=== PATIENT | female | born 1980 | race Caucasian/White ===

== ENCOUNTER 2018-09-05 03:23 | Inpatient (IN) | payer SELFPAY ==
--- NOTE | 2018-09-05 03:45 | ED ---
HPI Diabetic - HPI Summary HPI Summary: This patient is a 38 year old F presenting to [facility] accompanied by family with a chief complaint of vomiting that began at 0230. The patient rates the pain 6/ 10 in severity. Symptoms aggravated by nothing. Symptoms alleviated by nothing. Patient reports upper body pain. Patient denies fever and diarrhea. Patient states she gets vomiting episodes when shes in DKA. - History Of Current Complaint Chief Complaint: EDDiabeticProb Time Seen by Provider: 09/05/18 03:34 Hx Obtained From: Patient Onset/Duration: Sudden Onset, Lasting Hours, Still Present Timing: Constant Severity Initially: Moderate Severity Currently: Moderate Character: Alert Aggravating: Nothing Alleviating: Nothing - Allergies/Home Medications Allergies/Adverse Reactions: Allergies Allergy/AdvReac Type Severity Reaction Status Date / Time No Known Allergies Allergy Verified 09/05/18 03:28 PMH/Surg Hx/FS Hx/Imm Hx Previously Healthy: No Endocrine/Hematology History: Reports: Hx Diabetes Opthamlomology History: Denies: Hx Legally Blind EENT History: Denies: Hx Deafness Infectious Disease History: No Infectious Disease History: Denies: Traveled Outside the [place] in Last 30 Days - Family History Known Family History: Negative: Cardiac Disease, Diabetes - Social History Occupation: Unemployed Lives: With Family Alcohol Use: Daily Alcohol Amount: 1/2 liter of vodka daily Hx Substance Use: No Substance Use Type: Reports: None Hx Tobacco Use: Yes Smoking Status (MU): Heavy Every Day Tobacco Smoker Review of Systems Negative: Fever Positive: Vomiting. Negative: Diarrhea Positive: Other - Positive upper body pain All Other Systems Reviewed And Are Negative: Yes Physical Exam - Summary Physical Exam Summary: VITAL SIGNS: Reviewed. GENERAL: Patient is a well-developed and nourished female who is lying comfortable in the stretcher. Patient is not in any acute respiratory distress. HEAD AND FACE: No signs of trauma. No ecchymosis, hematomas or skull depressions. No sinus tenderness. EYES: PERRLA, EOMI x 2, No injected conjunctiva, no nystagmus. EARS: Hearing grossly intact. Ear canals and tympanic membranes are within normal limits. MOUTH: Oropharynx within normal limits. NECK: Supple, trachea is midline, no adenopathy, no JVD, no carotid bruit, no c- spine tenderness, neck with full ROM. CHEST: Symmetric, no tenderness at palpation LUNGS: Clear to auscultation bilaterally. No wheezing or crackles. CVS: Regular rhythm and tachycardic, S1 and S2 present, no murmurs or gallops appreciated. ABDOMEN: Soft, non-tender. No signs of distention. No rebound no guarding, and no masses palpated. Bowel sounds are normal. EXTREMITIES: FROM in all major joints, no edema, no cyanosis or clubbing. NEURO: Alert and oriented x 3. No acute neurological deficits. Speech is normal and follows commands. SKIN: Dry and warm Triage Information Reviewed: Yes Vital Signs On Initial Exam: Initial Vitals Temp Pulse Resp BP Pulse Ox 98.2 F 111 18 129/67 100 09/05/18 03:25 09/05/18 03:25 09/05/18 03:25 09/05/18 03:25 09/05/18 03:25 Vital Signs Reviewed: Yes Diagnostics - Vital Signs Vital Signs Temp Pulse Resp BP Pulse Ox 09/05/18 03:25 98.2 F 111 18 129/67 100 - Laboratory Result Diagrams: 09/05/18 04:32 09/05/18 04:32 Lab Statement: Any lab studies that have been ordered have been reviewed, and results considered in the medical decision making process. - Radiology CXR Radiology Interpretation Completed By: ED Physician Summary of Radiographic Findings: CXR reveals, per ED physician, no acute process. - EKG 0417 Cardiac Rate: Tachycardia EKG Rhythm: Sinus Rhythm - 114 BPM Summary of EKG Findings: An EKG taken at 0417 reveals sinus tachycardia at 114 BPM with nml axis, nml intervals, and no ischemic changes. Diabetic Course/Dx - Course Course Of Treatment: This patient is a 38 year old F presenting to [facility] accompanied by family with a chief complaint of vomiting that began at 0230. Physical Exam Findings: Tachycardic. An EKG taken at 0417 reveals sinus tachycardia at 114 BPM with nml axis, nml intervals, and no ischemic changes. CXR reveals, per ED physician, no acute process. ED physician has reviewed this radiology report. Bloodwork obtained. In the ED course the patient was given insulin, fluids, metoclopramide, and pantoprazole. Consult with Dr. Wolff ( hospitalist) at 0522. He agrees to admit the pt for further evaluation. The patient is agreeable with this plan. - Diagnoses Provider Diagnoses: DKA (diabetic ketoacidoses) - Physician Notifications Discussed Care Of Patient With: Abel Wolff Time Discussed With Above Provider: 05:22 Instructed by Provider To: Other - Consult with Dr. Wolff (hospitalist) at 0522. He agrees to admit the pt for further evaluation. - Critical Care Time Critical Care Time: 30-74 min - 40 min Discharge - Sign-Out/Discharge Documenting (check all that apply): Patient Departure - Admit to [facility] Patient Received Moderate/Deep Sedation with Procedure: No - Discharge Plan Condition: Stable Disposition: ADMITTED TO [facility] - Billing Disposition and Condition Condition: STABLE Disposition: Admitted to [facility] - Attestation Statements Document Initiated by Tamera: Yes Documenting Scribe: Whit Alvarez Provider For Whom Tamera is Documenting (Include Credential): Dr. Iggy Carter MD Scribe Attestation: Wiht Guthrie, scribed for Dr. Iggy Carter MD on 09/05/18 at 0628. Scribe Documentation Reviewed: Yes Provider Attestation: The documentation as recorded by the Whit deleon accurately reflects the service I personally performed and the decisions made by me, Dr. Iggy Carter MD Status of Scribe Document: Viewed
[2018-09-05] MEDS ORDERED: Insulin REGULAR(*) 1 UNITS UNIT IV ONE (03:46)
[2018-09-05] MEDS ORDERED: Metoclopramide IV* 5 MG/ML 2 ML VIAL IV SLOW PU ONE (03:48)
[2018-09-05] MEDS ORDERED: Pantoprazole IV* 40 MG IV ONE (03:49)
[2018-09-05] MEDS ORDERED: Insulin IVPB 100 units/100 ml 100 UNITS/100 ML UNIT IVPB SCH ×2 (04:00→07:00)
[2018-09-05] MEDS: NS 0.9% 1000 ML** 2,000 ML IV ONE (04:16)
[2018-09-05 04:49] LABS: ABS Basophils 0 10^3/ul (0-0.2); ABS Eosinophils 0.1 10^3/ul (0-0.6); ABS Lymphocytes 1.3 10^3/ul (1.0-4.8); ABS Monocytes 0.1 10^3/ul (0-0.8); ABS Neutrophils 7.5 10^3/ul (1.5-7.7); ABS Nucleated RBC 0 10^3/ul; Eosinophil % 0.6 %; Hematocrit 44 % (33-41); Hemoglobin 14.8 g/dL (12.0-16.0); Lymphocyte % 14.3 %; Mean Corpuscular HGB Conc 34 g/dL (31-36); Mean Corpuscular Hemoglobin 34 pg (27-31); Mean Corpuscular Volume 99 fL (80-97); Mean Platelet Volume 8.8 fL (7.4-10.4); Nucleated Red Blood Cells % 0; Platelet Count 216 10^3/uL (150-450); Red Blood Count 4.42 10^6 /uL (3.70-4.87); Red Cell Distribution Width 15 % (10.5-15); White Blood Count 9.1 10^3/uL (3.5-10.8)
[2018-09-05 04:52] LABS: INR 0.83 (0.77-1.02)
[2018-09-05 05:06] LABS: ALT 18 U/L (7-52); AST 24 U/L (13-39); Albumin 4.3 g/dL (3.2-5.2); Alkaline Phosphatase 55 U/L (34-104); Amylase 12 U/L (29-103); BUN/Creatinine Ratio 13.3 (8-20); Blood Urea Nitrogen 10 mg/dL (6-24); C Reactive Protein 1.16 mg/L (<8.01); Calcium 9.2 mg/dL (8.6-10.3); Chloride 100 mmol/L (101-111); EGFR African American 103.6 (>60); EGFR Non-African American 85.6 (>60); Globulin 2.2 g/dL (2-4); Glucose 419 mg/dL (70-100); Magnesium 1.9 mg/dL (1.9-2.7); Phosphorus 3.2 mg/dL (2.5-5.0); Potassium 4.7 mmol/L (3.5-5.0); Sodium 134 mmol/L (135-145); Total Protein 6.5 g/dL (6.4-8.9)
[2018-09-05 05:09] LABS: Anion Gap 21 mmol/L (2-11); CO2 Carbon Dioxide 13 mmol/L (22-32)
[2018-09-05 05:13] LABS: HCG Pregnancy < 0.60 mIU/mL
--- NOTE | 2018-09-05 06:21 | ADMNOTE ---
Subjective Date of Service: 09/05/18 Interval History: HISTORY AND PHYSICAL PCP: Socorro Wilkerson in [place] CC: vomiting HPI: 38 year old woman with 10-year history of type 1 diabetes, developed vomiting today at home. She has had DKA several times before, was worried this was occurring. She has not checked FSBG at home for several days as she is moving to [place], could not locate her device. She also has had bronchitis for 1 week, saw her PCP a few days ago, was told this was a viral illness. She has been compliant with her insulin pump, with settings of 19.4 units/day basal and various bolus options based on carb counting and/or blood glucose. When she has had DKA in past, she has had chest and abdominal pain, arm and leg pain, and this did occur today. She lost her insurance a few months ago, and has stopped her psychiatry medications, including adderall, wellbutrin, Cymbalta, and Abilify. She drinks 1/2 liter of vodka per day, denies history of withdrawal. She recently had 9 months sobriety, but relapsed recently. 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, previously lived in [place], Smokes 1PPD, alcohol 0.5 liter/day vodka, denies recent drug use Past Medical History: Findings - Type 1 diabetes, depression, anxiety; PSH: none Review of Systems - Measurements Intake and Output: Intake and Output Last 24 Hours 09/02/18 09/03/18 09/04/18 09/05/18 06:59 06:59 06:59 06:59 Intake Total 1000 Balance 1000 Weight 68.039 kg Intake: IV Fluids 1000 - Review of Systems Constitutional Symptoms: Positive: Fatigue, Night Sweats Negative: Fever Dermatology: Positive: Normal HEENT: Positive: Normal Eyes: Positive: Normal Thyroid: Positive: Normal Pulmonary: Positive: Normal Cardiology: Positive: Normal Gastroenterology: Positive: Abdominal Pain, Nausea, Vomiting Negative: Anorexia, Diarrhea Genital - Urinary: Positive: Normal Genitourinay - Female: Positive: Menses Normal Musculoskeletal: Negative: Joint Pain Endocrinology: Positive: Diabetes Mellitus Neurology: Positive: Normal Psychiatry: Positive: Normal Objective Active Medications: Home Meds Humalog pump 19.5 units/hr basal plus boluses prn Vital Signs - 8 hr 09/05/18 09/05/18 09/05/18 03:25 03:32 03:33 Temperature 36.8 C Pulse Rate 111 111 109 Respiratory 18 10 17 Rate Blood Pressure 129/67 130/78 (mmHg) O2 Sat by Pulse 100 100 100 Oximetry 09/05/18 06:03 Temperature Pulse Rate 122 Respiratory 26 Rate Blood Pressure 130/70 (mmHg) O2 Sat by Pulse 98 Oximetry Oxygen Devices in Use Now: None Appearance: somnolent, arousable Eyes: No Scleral Icterus Ears/Nose/Mouth/Throat: NL Teeth, Lips, Gums, - - dry mouth Neck: NL Appearance and Movements; NL JVP Respiratory: Symmetrical Chest Expansion and Respiratory Effort, Clear to Auscultation Cardiovascular: NL Sounds; No Murmurs; No JVD, RRR Abdominal: NL Sounds; No Tenderness; No Distention Lymphatic: No Cervical Adenopathy Extremities: No Edema Skin: No Rash or Ulcers, - - many tattoos Neurological: Alert and Oriented x 3 Lines/Tubes/Other Access: Clean, Dry and Intact Peripheral IV Nutrition: - - NPO Result Diagrams: 09/05/18 04:32 09/05/18 04:32 Additional Lab and Data: Laboratory Tests 09/05/18 09/05/18 09/05/18 03:33 04:32 04:32 INR (Anticoag Therapy) 0.83 VBG pH VBG pCO2 VBG pO2 VBG HCO3 VBG O2 Saturation Glucose 419 H POC Glucose (mg/dL) 393 H Magnesium 1.9 AST 24 ALT 18 C-Reactive Protein 1.16 Amylase 12 L Lipase < 10 L Beta HCG, Quant < 0.60 09/05/18 09/05/18 04:37 05:25 INR (Anticoag Therapy) VBG pH 7.21 L VBG pCO2 17 L VBG pO2 58.0 H VBG HCO3 10.0 L VBG O2 Saturation 88.2 H Glucose POC Glucose (mg/dL) 265 H Magnesium AST ALT C-Reactive Protein Amylase Lipase Beta HCG, Quant Diagnostic Imaging: Chest X-ray: no infiltrates EKG Data: sinus tachycardia Assess/Plan/Problems-Billing Assessment: 38 year old woman with moderate DKA - Patient Problems (1) Type 1 diabetes mellitus with ketoacidosis and without coma Current Visit: Yes Status: Acute Priority: High Code(s): E10.10 - TYPE 1 DIABETES MELLITUS WITH KETOACIDOSIS WITHOUT COMA SNOMED Code(s): 40791834 Comment: -Precipitating event may have been viral illness, and underdosing insulin due to loss of meter -Will admit to ICU, continue insulin drip. -Will add D5 and KCl to saline to maintain glucose level while gap closes and maintain K when potassium shifts intracellularly. -Will restart pump and allow to eat when gap closes (2) Depression Current Visit: Yes Status: Acute Priority: Medium Code(s): F32.9 - MAJOR DEPRESSIVE DISORDER, SINGLE EPISODE, UNSPECIFIED SNOMED Code(s): 73995894 Comment: -Needs to reconnect with insurance then can restart medications -Social work consultation (3) DVT prophylaxis Current Visit: Yes Status: Acute Priority: Low Code(s): LIQ5122 - SNOMED Code(s): 331401811 Comment: -low risk -early ambulation Status and Disposition: ICU stay required
[2018-09-05 06:37] LABS: Urine Appearance Clear; Urine Bilirubin Negative (Negative); Urine Blood Negative (Negative); Urine Color Straw; Urine Glucose 3+(>=500 mg/dL) (Negative); Urine Ketones 2+ (Negative); Urine Nitrite Negative (Negative); Urine Protein Negative (Negative); Urine Specific Gravity 1.022 (1.010-1.030); Urine Urobilinogen Negative (Negative)
[2018-09-05] MEDS ORDERED: D5W NS 0.9% 20Meq KCL 1000 ML* 1,000 ML IV SCH ×3 (07:00→12:22)
[2018-09-05 07:29] LABS: Glucose Confirmatory 211 mg/dL (70-100)
[2018-09-05 07:59] LABS: BUN/Creatinine Ratio 14.1 (8-20); Blood Urea Nitrogen 10 mg/dL (6-24); CO2 Carbon Dioxide 15 mmol/L (22-32); Calcium 8.3 mg/dL (8.6-10.3); Chloride 105 mmol/L (101-111); EGFR African American 110.3 (>60); EGFR Non-African American 91.2 (>60); Glucose 208 mg/dL (70-100); Sodium 134 mmol/L (135-145)
[2018-09-05 08:07] LABS: Anion Gap 14 mmol/L (2-11)
--- NOTE | 2018-09-05 08:40 | PN ---
Subjective Date of Service: 09/05/18 Interval History: HOSPITALIST PROGRESS NOTE Patient seen and examined at bedside multiple times today. Care reviewed and d/ w Candi Martinez RN. Initially she was feeling poorly, with nausea, frequent cough, but as they went by her symptoms have improved. She is tolerating PO diet and is now transitioning to her insulin pump. Family History: Unchanged from Admission Social History: Unchanged from Admission Past Medical History: Unchanged from Admission Objective Active Medications: Insulin Human Regular (Insulin Regular Iv Drip 1 Unit/Ml) 100 units in 100 mls @ 2 mls/hr IVPB .(as Initial Rate) [facility]; Protocol Last Admin: 09/05/18 07:16 Dose: 2 mls/hr Sodium Bicarbonate 100 meq/ (Dextrose) 1,100 mls @ 100 mls/hr IVPB Q11H [facility] Potassium Chloride/Dextrose (D5w Ns 0.9% 20meq Kcl 1000 Ml*) 1,000 mls @ 100 mls/hr IV PER RATE [facility] Vital Signs - 8 hr 09/05/18 09/05/18 09/05/18 03:25 03:32 03:33 Temperature 98.2 F Pulse Rate 111 111 109 Respiratory 18 10 17 Rate Blood Pressure 129/67 130/78 (mmHg) O2 Sat by Pulse 100 100 100 Oximetry 09/05/18 09/05/18 09/05/18 04:00 05:00 05:03 Temperature Pulse Rate 112 115 117 Respiratory 20 22 20 Rate Blood Pressure 128/62 (mmHg) O2 Sat by Pulse 100 99 99 Oximetry 09/05/18 09/05/18 09/05/18 05:25 05:33 06:00 Temperature 99.6 F Pulse Rate 121 127 Respiratory 20 20 Rate Blood Pressure 137/71 (mmHg) O2 Sat by Pulse 99 98 Oximetry 09/05/18 09/05/18 09/05/18 06:03 06:33 06:45 Temperature 99.4 F Pulse Rate 122 110 108 Respiratory 26 24 20 Rate Blood Pressure 130/70 136/72 126/80 (mmHg) O2 Sat by Pulse 98 100 100 Oximetry 09/05/18 09/05/18 09/05/18 06:58 07:00 07:15 Temperature 99.6 F Pulse Rate 111 112 110 Respiratory 17 22 20 Rate Blood Pressure 120/71 118/75 (mmHg) O2 Sat by Pulse 100 100 100 Oximetry 09/05/18 09/05/18 07:30 08:00 Temperature Pulse Rate 106 119 Respiratory 20 26 Rate Blood Pressure 116/68 128/66 (mmHg) O2 Sat by Pulse 100 98 Oximetry Oxygen Devices in Use Now: None Appearance: Young lady lying in bed in NAD Eyes: No Scleral Icterus Ears/Nose/Mouth/Throat: Mucous Membranes Moist Neck: Trachea Midline Respiratory: Symmetrical Chest Expansion and Respiratory Effort, Clear to Auscultation Cardiovascular: NL Sounds; No Murmurs; No JVD, RRR Abdominal: NL Sounds; No Tenderness; No Distention Neurological: Alert and Oriented x 3, NL Muscle Strength and Tone Result Diagrams: 09/05/18 04:32 09/05/18 14:55 Assess/Plan/Problems-Billing Assessment: Ms Macdonald is a 38 yo F with PMH of type 1 DM, recently uninsured, found to be in DKA. - Patient Problems (1) Type 1 diabetes mellitus with ketoacidosis and without coma Comment: - Resolved. - Anion gap is closed, acidosis is resolved. - Will transition from insulin drip back to her pump. - Continue consistent carb diet. - D/c bicarb drip (2) Bronchitis Comment: - Patient has had >1 week of symptoms with no significant improvement - suspect bacterial infection on top of initial viral process. - Add Ceftriaxone and Zithromax. - Bronchodilators. (3) DVT prophylaxis Comment: - SCD (4) Full code status Status and Disposition: Transfer to medical floor.
[2018-09-05] MEDS ORDERED: Acetaminophen TAB* 325 MG PO PRN (08:41)
[2018-09-05] MEDS ORDERED: PROCHLORPERAZINE INJ 5 MG/ML 2 ML VIAL IV PRN (08:41)
[2018-09-05] MEDS ORDERED: cefTRIAXone(*) 1 GM in NS 0.9% 50 ML* 50 ML IVPB SCH (09:00)
[2018-09-05] MEDS ORDERED: Sodium Bicarbonate 8.4% IV* 100 MEQ in D5W 1000 ML BAG* 1,000 ML IVPB SCH (09:00)
[2018-09-05] MEDS ORDERED: Azithromycin IV(*) 500 MG in NS 0.9% 250 ML* 250 ML IVPB SCH (09:30)
[2018-09-05 09:41] LABS: Phosphorus 1.9 mg/dL (2.5-5.0)
[2018-09-05] MEDS ORDERED: Potassium Phosphate IV* 10 MMOLE in NS 0.9% 250 ML* 250 ML IVPB ONE (11:30)
[2018-09-05 12:12] LABS: Potassium 4.2 mmol/L (3.5-5.0)
[2018-09-05 12:18] LABS: BUN/Creatinine Ratio 11.1 (8-20); EGFR African American 126.6 (>60); EGFR Non-African American 104.7 (>60)
[2018-09-05] MEDS ORDERED: Insulin LISPRO* 1 UNITS UNIT SUBCUT ONE ×2 (12:24→15:56)
[2018-09-05] MEDS ORDERED: Dextrose 50% Syringe 50 ML* 25 GM/50 ML SYRINGE IV PUSH PRN (12:24)
[2018-09-05 15:27] LABS: BUN/Creatinine Ratio 9.6 (8-20); EGFR African American 106.8 (>60); EGFR Non-African American 88.3 (>60); Potassium 3.6 mmol/L (3.5-5.0)
[2018-09-05] MEDS ORDERED: Albuterol 2.5 MG/3 ML NEB.SOL* (0.083%) INH PRN (16:49)
[2018-09-05] MEDS ORDERED: Potassium Chlor TAB* 20 MEQ TAB.ER PO ONE (16:52)
[2018-09-05] MEDS ORDERED: Potassium Chloride IV* 20 MEQ in Lactated Ringers 1000 ML Bag* 1,000 ML IVPB SCH (17:00)
[2018-09-05] MEDS ORDERED: Insulin LISPRO* FOR INSULIN PUMP SUBCUT SCH (17:00)
[2018-09-05] MEDS: Lactated Ringers 1000 ML Bag* 1,000 ML IV SCH (18:57)
[2018-09-05] MEDS ORDERED: Nicotine Inhaler* 10 MG AMP INH PRN (19:42)
[2018-09-05] MEDS ORDERED: Mouth Piece, Nicotine* 1 EACH CARTRIDGE INH PRN (19:47)
[2018-09-05] MEDS ORDERED: Nicotine PATCH 21 MG/24 HR* PATCH TRANSDERM SCH (20:00)
[2018-09-06] MEDS: Lactated Ringers 1000 ML Bag* 1,000 ML IV SCH (05:39)
[2018-09-06] MEDS ORDERED: Nicotine Patch Removal NOTE PATCH OFF SCH (06:00)
[2018-09-06 06:50] LABS: ABS Basophils 0 10^3/ul (0-0.2); ABS Eosinophils 0.1 10^3/ul (0-0.6); ABS Lymphocytes 2.4 10^3/ul (1.0-4.8); ABS Monocytes 0.5 10^3/ul (0-0.8); ABS Neutrophils 3.7 10^3/ul (1.5-7.7); ABS Nucleated RBC 0 10^3/ul; Eosinophil % 1.5 %; Hematocrit 39 % (33-41); Hemoglobin 13.3 g/dL (12.0-16.0); Lymphocyte % 35.5 %; Mean Corpuscular HGB Conc 34 g/dL (31-36); Mean Corpuscular Hemoglobin 33 pg (27-31); Mean Corpuscular Volume 97 fL (80-97); Mean Platelet Volume 8.4 fL (7.4-10.4); Nucleated Red Blood Cells % 0.1; Platelet Count 181 10^3/uL (150-450); Red Cell Distribution Width 15 % (10.5-15); White Blood Count 6.7 10^3/uL (3.5-10.8)
[2018-09-06 07:02] LABS: BUN/Creatinine Ratio 12.3 (8-20); Calcium 8.8 mg/dL (8.6-10.3); EGFR African American 122.2 (>60); Potassium 4.5 mmol/L (3.5-5.0)
[2018-09-06 07:59] VITALS: BP 133/82
[2018-09-06] MEDS ORDERED: guaiFENesin ER TAB 600 MG PO SCH (09:00)
--- NOTE | 2018-09-07 00:26 | DS ---
CC: Socorro Wilkerson NP, in [place].* DISCHARGE SUMMARY: DATE OF ADMISSION: 09/05/18. DATE OF DISCHARGE: Against medical advice, 09/06/18. PRIMARY CARE PHYSICIAN: Socorro Wilkerson NP in [place]. DISCHARGE DIAGNOSES: 1. Diabetic ketoacidosis. 2. Bronchitis. SECONDARY DIAGNOSES: 1. Type 1 diabetes. 2. Noncompliance. 3. Depression. 4. Anxiety. 5. Tobacco abuse. 6. Alcohol abuse. MEDICATION LIST: 1. Zolpidem 10 mg p.o. at bedtime. 2. Vyvanse 50 mg p.o. daily. 3. Abilify 10 mg p.o. at bedtime. 4. Cymbalta 30 mg p.o. at bedtime. 5. Bupropion XL 300 mg p.o. at bedtime. 6. Adderall 20 mg p.o. t.i.d. 7. Lispro insulin through insulin pump. 8. Cefuroxime 250 mg p.o. b.i.d. for six more days. 9. Azithromycin 250 mg p.o. daily for four more days. HOSPITAL COURSE: Ms. Macdonald is a 38-year-old lady with a past medical history as stated above that has recently become uninsured. She comes to the emergency room with complaints of vomiting and she was concerned with DKA as she has had it several times in the past. She also had respiratory complaints of cough and shortness of breath, had been diagnosed with viral bronchitis one week ago by her PCP. For more details about her presentation, I refer you to her history and physical. The patient was found to have a glucose of 393 with PO2 of 13, anion gap of 21. She was admitted to the intensive care unit, started on a regular insulin drip, received IV hydration and electrolytes repletion and her DKA resolved. The patient was transitioned to her insulin pump and she was able to tolerate a diet. The patient had no signs of alcohol withdrawal while in the hospital and she felt improved on 09/06/18. The idea was to continue to manage her diabetes and her bronchitis and to discharge her later, but the patient was adamant that she needed to go at that time. We discussed the possibility of staying a little longer and also the risks and benefits including but not limited to progression of disease, respiratory failure, recurrence of DKA and . The patient verbalized understanding the recommendations, but stated that she could not stay in the hospital any longer and she left against medical advice. Ideally, I would like to have mental health social worker work with her, so she could get insurance as she thinks she may qualify for Medicaid, so she could return to her primary care provider and afford her medications again, but unfortunately the patient did not stay. She did receive information to talk to Trish Leon , Medicaid navigator to see if she qualifies for Medicaid. The patient will be discharged against medical advice at this time. PHYSICAL EXAMINATION: Vital Signs: Temperature 97.5, heart rate 93, respiratory rate 16, oxygen saturation 99% on room air, blood pressure 133/82. General: The patient is a young lady sitting up in bed in no acute distress. CVS: S1 and S2. Regular rate and rhythm. Chest: Breath sounds present bilaterally with no added sounds. Neuro: She is alert and oriented x3. Able to move all 4 extremities. DIET: Consistent carb diet. ACTIVITY: As tolerated. DISPOSITION: To home against medical advice. STATUS WHILE IN THE HOSPITAL: Inpatient. CONDITION AT THE TIME OF DISCHARGE: Guarded. Please note that although the patient says that she drinks half a bottle of vodka a day at this point, she is showing no signs of alcohol withdrawal. She is alert, awake, and oriented x3 and I believe she has the capacity to sign up against medical advice, even though I do not agree with her decision. Please keep in mind this is a summarized version of this patient's hospital stay. If you need more information, please feel free to call me at [phone] or please obtain the full medical records. TIME SPENT: Approximately 45 minutes were spent to complete this discharge. [id number]/[facility] #: [id number] [facility]
== END 2018-09-06 09:20 | disposition left against medical advice (07) | DRG 639 ==
LOC: ED 03:23 → ICU 06:09 → MED 18:36
PROVIDERS: ADMIT Internal Medicine; ATTEND Internal Medicine
DX: E10.10 Type 1 diabetes mellitus with ketoacidosis without coma (principal); R00.0 Tachycardia, unspecified; F17.210 Nicotine dependence, cigarettes, uncomplicated; Z96.41 Presence of insulin pump (external) (internal); J40 Bronchitis, not specified as acute or chronic; F10.10 Alcohol abuse, uncomplicated; Y90.9 Presence of alcohol in blood, level not specified; F41.9 Anxiety disorder, unspecified; F32.9 Major depressive disorder, single episode, unspecified; Z91.14 Patient's other noncompliance with medication regimen; Z82.3 Family history of stroke; Z79.4 Long term (current) use of insulin; Z56.0 Unemployment, unspecified; Z82.49 Family history of ischemic heart disease and other diseases of the circulatory system
CPT/HCPCS: 36415; 71045; 80048; 80053; 81003; 82150; 82803; 82947; 83605; 83690; 83735; 84100; 84702; 85025; 85610; 86140; 87040; 87641; 93005; 99284; A9270-GY; J0456; J0696; J1815; J2765; J3480; J7060

== ENCOUNTER 2018-12-26 08:47 | Inpatient (IN) | payer MEDICAID, OTHER ==
--- NOTE | 2018-12-26 09:09 | ED ---
HPI Diabetic - HPI Summary HPI Summary: This patient is a 38 year old F presenting to [facility] accompanied by friend with a chief complaint of vomiting since night of 12/25/18. Patient reports abdominal pain, coughing, sore throat, blood sugar of 430 at midnight and 250 in the morning. She reports her nml blood sugar is 200. Pt denies any fever, chills, erythema of eyes, CP, SOB, dysuria, hematuria, myalgia, edema, rash, or dizziness, joint pain. Pt smokes and is on insulin. Pt has PMHx of DKA. - History Of Current Complaint Chief Complaint: EDDiabeticProb Time Seen by Provider: 12/26/18 08:58 Hx Obtained From: Patient Onset/Duration: Sudden Onset, Lasting Hours, Still Present Aggravating: Nothing Alleviating: Nothing Associated Signs & Symptoms: Negative - fever, chills, erythema of eyes, CP, SOB , dysuria, hematuria, myalgia, edema, rash, or dizziness, joint pain, Abdominal Pain, Cough, Nausea, Vomiting Related History: Hx of DKA - Allergies/Home Medications Allergies/Adverse Reactions: Allergies Allergy/AdvReac Type Severity Reaction Status Date / Time No Known Allergies Allergy Verified 09/05/18 03:28 PMH/Surg Hx/FS Hx/Imm Hx Endocrine/Hematology History: Reports: Hx Diabetes Sensory History: Denies: Hx Contacts or Glasses, Hx Legally Blind, Hx Deafness, Hx Hearing Aid Opthamlomology History: Denies: Hx Contacts or Glasses, Hx Legally Blind Psychiatric History: Reports: Hx Anxiety, Hx Depression Infectious Disease History: No Infectious Disease History: Denies: Traveled Outside the [place] in Last 30 Days - Family History Known Family History: Negative: Cardiac Disease, Diabetes - Social History Occupation: Employed Full-time Alcohol Use: Daily Alcohol Amount: 1/2 L of vodka a day Hx Substance Use: No Substance Use Type: Reports: None Hx Tobacco Use: Yes Smoking Status (MU): Heavy Every Day Tobacco Smoker Review of Systems Negative: Fever, Chills Negative: Erythema Positive: Sore Throat Negative: Chest Pain Positive: Cough. Negative: Shortness Of Breath Positive: Abdominal Pain, Vomiting, Nausea Negative: dysuria, hematuria Negative: Myalgia, Edema Negative: Rash All Other Systems Reviewed And Are Negative: Yes Physical Exam - Summary Physical Exam Summary: Constitutional: Well-developed, Well-nourished, Alert. (-) Distressed Skin: Warm, Dry HENT: Normocephalic; Atraumatic Eyes: Conjunctiva normal Neck: Musculoskeletal ROM normal neck. (-) JVD, (-) Stridor, (-) Tracheal deviation Cardio: Rhythm regular, elevated pulse, Heart sounds normal; Intact distal pulses; The pedal pulses are 2+ and symmetric. Radial pulses are 2+ and symmetric. (-) Murmur Pulmonary/Chest wall: Effort normal. (-) Respiratory distress, (-) Wheezes, (-) Rales Abd: Soft, (-) Distension, (-) Guarding, (-) Rebound, Diffuse mild abdominal tenderness Musculoskeletal: (-) Edema Lymph: (-) Cervical adenopathy Neuro: Alert, Oriented x3 Psych: Mood and affect Zelda Triage Information Reviewed: Yes Vital Signs On Initial Exam: Initial Vitals Temp Pulse Resp BP Pulse Ox 98.5 F 127 18 129/79 100 12/26/18 08:48 12/26/18 08:48 12/26/18 08:48 12/26/18 08:48 12/26/18 08:48 Vital Signs Reviewed: Yes Diagnostics - Vital Signs Vital Signs Temp Pulse Resp BP Pulse Ox 12/26/18 08:48 98.5 F 127 18 129/79 100 - Laboratory Result Diagrams: 12/26/18 09:13 12/26/18 12:51 Lab Statement: Any lab studies that have been ordered have been reviewed, and results considered in the medical decision making process. - Radiology CXR Radiology Interpretation Completed By: Radiologist Summary of Radiographic Findings: CXR reveals, per radiologist, IMPRESSION: NO EVIDENCE FOR ACTIVE CARDIOPULMONARY DISEASE. ED physician has reviewed this radiology report. - EKG 0917 Cardiac Rate: Tachycardia - 103 bpm EKG Rhythm: Sinus Tachycardia Summary of EKG Findings: An EKG at 0917 reveals sinus tachycardia 103 bpm, no STEMI. Diabetic Course/Dx - Course Course Of Treatment: This patient is a 38 year old F presenting to [facility] accompanied by friend with a chief complaint of vomiting since night of . Patient reports abdominal pain, coughing, sore throat, blood sugar of 430 at midnight and 250 in the morning. She reports her nml blood sugar is 200. Pt has PMHx of DKA. Physical Exam is nml exam, except for diffuse mild abd tenderness and elevated pulse. There was no rebound or guarding. An EKG at 0917 reveals sinus tachycardia 103 bpm, no STEMI. Blood work obtained. WBC is 11.7, MCV is 104, MCH is 35, VBG pH is 7.113, Sodium is 132, Potassium is 5.1, Chloride is 97, Carbon Dioxide is 11, Anion Gap is 24, Creatinine is 1.04, Glucose is 282. UA obtained. In the ED course the patient was given Insulin Regular IV drip 100 units in 100 mls, Zofran inj 4 mg, Tylenol 650 mg PO, and fluids. CXR reveals, IMPRESSION: NO EVIDENCE FOR ACTIVE CARDIOPULMONARY DISEASE. We discussed patient care with Dr. Beavers and they recommended pt for admission. Patient will be admitted. The patient is agreeable with this plan. - Diagnoses Provider Diagnoses: Diabetic ketoacidosis - Physician Notifications Discussed Care Of Patient With: John Beavers Time Discussed With Above Provider: 10:26 Instructed by Provider To: Other - Discussed pt case with Dr. Beavers; 11:05 Dr. Beavers accepts pt for admission. - Critical Care Time Critical Care Time: 30-74 min - 60 mins Discharge - Sign-Out/Discharge Documenting (check all that apply): Patient Departure - Admit All imaging exams completed and their final reports reviewed: Yes Patient Received Moderate/Deep Sedation with Procedure: No - Discharge Plan Condition: Good Disposition: ADMITTED TO [facility] - Attestation Statements Document Initiated by Scribe: Yes Documenting Scribe: Lizette Holt Provider For Whom Scribe is Documenting (Include Credential): Dr. Mitch Byers MD Scribe Attestation: Lizette Guthrie, scribed for Dr. Mitch Byers MD on 12/26/18 at 1531. Status of Scribe Document: Ready
[2018-12-26] MEDS ORDERED: NS 0.9% IV ONE (09:17)
[2018-12-26 09:33] LABS: ABS Basophils 0.1 10^3/ul (0-0.2); ABS Lymphocytes 1.2 10^3/ul (1.0-4.8); ABS Monocytes 0.8 10^3/ul (0-0.8); ABS Neutrophils 9.6 10^3/ul (1.5-7.7); Hematocrit 46 % (35-47); Hemoglobin 15.4 g/dL (12.0-16.0); Lymphocyte % 10.4 %; Mean Corpuscular HGB Conc 34 g/dL (31-36); Mean Corpuscular Hemoglobin 35 pg (27-31); Mean Corpuscular Volume 104 fL (80-97); Mean Platelet Volume 8.9 fL (7.4-10.4); Nucleated Red Blood Cells % 0.1; Platelet Count 174 10^3/uL (150-450); Red Cell Distribution Width 14 % (10-15); White Blood Count 11.7 10^3/uL (3.5-10.8)
[2018-12-26 09:53] LABS: Albumin 4.7 g/dL (3.2-5.2); Albumin/Globulin Ratio 1.9 (1-3); BUN/Creatinine Ratio 13.5 (8-20); C Reactive Protein 4.02 mg/L (<8.01); Calcium 9.3 mg/dL (8.6-10.3); EGFR Non-African American 58.7 (>60); Globulin 2.5 g/dL (2-4); Total Bilirubin 0.9 mg/dL (0.2-1.0); Total Protein 7.2 g/dL (6.4-8.9)
[2018-12-26 09:55] LABS: Potassium 5.1 mmol/L (3.5-5.0)
[2018-12-26] MEDS ORDERED: Insulin IVPB 100 units/100 ml 100 UNITS/100 ML UNIT IV SCH (10:00)
[2018-12-26] MEDS ORDERED: D5W 1/2 NS 1000 ML BAG* 1,000 ML IV SCH (11:00)
[2018-12-26] MEDS ORDERED: Ondansetron INJ* 2 MG/ML VIAL IV PRN (11:05)
[2018-12-26] MEDS: Acetaminophen TAB* 325 MG PO PRN ×2 (12:24→18:11)
[2018-12-26 12:57] LABS: Urine Appearance Clear; Urine Bilirubin Negative (Negative); Urine Blood Negative (Negative); Urine Color Straw; Urine Glucose 3+(>=500 mg/dL) (Negative); Urine Ketones 2+ (Negative); Urine Nitrite Negative (Negative); Urine Protein Negative (Negative); Urine Specific Gravity 1.014 (1.010-1.030); Urine Urobilinogen Negative (Negative)
[2018-12-26 14:14] LABS: BUN/Creatinine Ratio 11.7 (8-20); Calcium 7.2 mg/dL (8.6-10.3); EGFR African American 100.5 (>60)
[2018-12-26] MEDS: Nicotine PATCH 21 MG/24 HR* PATCH TRANSDERM SCH (15:05)
--- NOTE | 2018-12-26 15:23 | HP ---
CC: Socorro Wilkerson NP * ADMISSION HISTORY AND PHYSICAL: DATE OF ADMISSION: 12/26/18. PRIMARY CARE PROVIDER: Socorro Wilkerson NP of [facility]. ATTENDING PHYSICIAN: Rachael Landa DO.* (DICTATED BY JEVON APONTE) CHIEF COMPLAINT: Abdominal pain, nausea x 11 hours. HISTORY OF PRESENT ILLNESS: Ms. Macdonald is a 38-year-old female with a past medical history significant for type 1 diabetes mellitus diagnosed approximately 10 years ago with several admissions for DKA over that span, most recently being admitted to this institution in August of this year. The patient was feeling in her normal state of health until last night. The patient had dinner with her sister who has 2 children and did not eat anything out of the ordinary, but she did not get her bolus dose of her insulin from her insulin pump last night, though she did have the insulin basal dose running. The patient had nausea and vomiting consistent with her previous episodes of DKA, but trying to avoid coming to the hospital. The patient denies getting other insulin boluses. The patient did not check her blood sugars, except just before she came to the hospital and it was greater than 400. The patient had her insulin pump still running her basal dose of 19.5 units a day. The patient has recently lost weight 5 to 7 pounds over the past several months. The patient has no pain with urination, has not had a significant increase in urination, thirst, or hunger. The patient denies fevers, chills, chest pain, or shortness of breath. No dizziness upon standing. In the emergency department patient's symptoms are persistent of nausea and abdominal pain. The patient had no recent changes in her medication. The patient A1c was 7.1 last week. In the emergency department patient was found to be significantly acidotic; VBG pH of 7.13, carbon dioxide 11 on BMP with an elevated potassium, creatinine, low sodium, and anion gap of 24. The patient's glucose is only 282. Due to concerns for DKA we were asked to evaluate the patient for admission to the hospital. PAST MEDICAL HISTORY: Diabetes mellitus type 1, depression, and anxiety. PAST SURGICAL HISTORY: None. MEDICATIONS: At home: 1. Insulin pump 19.5 units basal dosing daily, 12 g of carbohydrate per unit plus sliding scale, unknown protocol. 2. Cymbalta 30 mg p.o. daily. 3. Vyvanse 60 mg p.o. daily. The patient is not taking all these medications due to insurance concerns. ALLERGIES: No known drug allergies. FAMILY HISTORY: The patient's father is alive and has stroke. Patient's mother is alive and has hypertension. Patient has a healthy sister. SOCIAL HISTORY: The patient is current 1-pack per day smoker and has been for the last 30 years. The patient drinks 1 to 2 drinks of alcohol daily. The patient has cut down significantly from previous hospitalization. The patient denies illicit drug use. 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 Lives with a female partner, no children. The patient surrogate decision maker is her sister Caroline Castellanos. REVIEW OF SYSTEMS: A 14-point review of systems was reviewed and negative except what is above in the HPI. PHYSICAL EXAMINATION GENERAL: The patient is a 38-year-old female who appears in stated age, sitting comfortably in bed, in no acute distress. VITAL SIGNS: At the time of evaluation, temperature 98.5, pulse rate 81, respiratory rate 18, oxygen saturation 100% on room air, blood pressure 123/77. HEENT: Normocephalic, atraumatic. Sclerae anicteric. No conjunctival injection. Nasal mucosa moist. Oral mucosa moist. No pharyngeal erythema, discharge or exudate. NECK: Supple, nontender. No lymphadenopathy. No carotid bruits. No JVD. RESPIRATORY: Clear to auscultation bilaterally. No wheezes, rales or rhonchi. Good air exchange bilaterally. CARDIAC: Regular rate and rhythm. No clicks, murmurs, gallops or rubs. Pulse is 2+ in the dorsalis pedis, posterior tibial, radialis. 1+ pitting edema in bilateral lower extremities. No bilateral calf tenderness. ABDOMEN: Soft and nontender. Bowel sounds present and normoactive in all 4 quadrants. No hepatosplenomegaly. No abdominal bruits auscultated. No hepatojugular reflux. NEUROLOGIC: Cranial nerves II through XII are intact. No focal deficits. The patient is alert and oriented x3. GENITOURINARY: No suprapubic tenderness. SKIN: Intact. PSYCHIATRIC: Pleasant and cooperative. DIAGNOSTIC STUDIES/LABORATORY DATA: White blood cell count 11.7, hemoglobin 13.4, MCV 1, platelet count 174. VBG: PH 7.13, pCO2 of 30, HCO3 of 10.1, pO2 38, oxygen saturation 69.9. Sodium 130, potassium 4.1, chloride 97, carbon dioxide 11, anion gap 24, BUN 14, creatinine 1.04, glucose 282, lactic acid 1.7 , calcium 9.3. Bilirubin 0.9, AST 25, ALT 21, alkaline phosphatase 68. CRP 4.02 , protein 7.2, albumin 4.7, globulin 2.5. Studies: EKG shows sinus tachycardia rate of 103, QTc 468. Asymmetrical high T - waves in V3, V4 and V5 not necessarily concerning at this point for hyperkalemia. No hypertrophy/enlargement. IMPRESSION: Ms. Macdonald is a 38-year-old female with past medical history of type 1 diabetes mellitus as well as anxiety and depression, who presents to the emergency department with 11 hours of nausea and vomiting, abdominal pain after having this one bolus dose of her insulin, came to the emergency department was found to have laboratory data consistent with diabetic ketoacidosis. The patient remained in the ICU on insulin drip with aggressive fluid resuscitation. 1. Type 1 diabetes mellitus complicated by diabetic ketoacidosis. The patient is significantly acidotic. Urine is pending, but the patient has no lactic acidosis. No uremia. This is presumably due to diabetic ketoacidosis which she previously had. The patient's glucose is only 282. The patient does not have absolute insulin deficiency, may have a relative insulin deficiency, it is unclear if patient had any precipitating events that may have decreased insulin sensitivity. The patient will have chest x-ray, urinalysis, and blood cultures just to assess for any inflammation that may have precipitate this. The patient may have food poisoning from her meal last night, which would explain her abdominal pain and diarrhea, it is somewhat obfuscated by her diabetic ketoacidosis. The patient has slightly elevated white blood cell count, which could be reactive from her vomiting and diabetic ketoacidosis; will not start antibiotics at this time. The patient A1c was 7.1 last week. The goal would be to transition patient back to her basal line dosing of her insulin pump as this appears to be working out well. The patient will have fingersticks q.1 hour, BMP q.3 hours, this will be adjusted based on the improvement of patient' s laboratory data. The patient did not require potassium repletion at this time , but this will be replaced if patient's potassium drops in to the normal range. The patient, given her only slightly elevated blood glucose will be given D5/0.5 N saline after initial saline bolus done. The patient initial insulin rate is 0.5 units/kg/hour, which is half the normal dose, given her decreased glucose. This can be increased to accelerate the improvement in her acidosis, if patient's blood sugar is able to be maintained about this. The patient will be monitored closely for hypoglycemia. Patient should follow up with mixing machine feeder as an outpatient. 2. Anxiety and depression. We will begin patient's home medications when she is able to tolerate her oral diet again. This should be taken as outpatient as well. 2. DVT prophylaxis: SCD's for low risk patient. 3. FEN: The patient will be n.p.o. except for ice chips at this time and will be transitioned to consistent carbohydrate diet, with carb counting for her insulin pump when she is able to tolerate a oral diet and her diabetic ketoacidosis has resolved. 4. Disposition: The patient admitted inpatient to the ICU. Estimated length of stay greater than 2 days. TIME SPENT: Approximately 60 minutes was spent on this admission with the patient, 30 of which was spent [id number] with the patient obtaining history and physical and discussing treatment plan. The plan was discussed with my attending, Dr. Rachael Landa, and she is in agreement. JEVON APONTE [id number]/[facility] #: [id number] [place]
[2018-12-26 16:29] LABS: BUN/Creatinine Ratio 9.9 (8-20); Calcium 7.7 mg/dL (8.6-10.3); EGFR African American 110.3 (>60); EGFR Non-African American 91.2 (>60); Potassium 3.9 mmol/L (3.5-5.0)
[2018-12-26] MEDS: Lactated Ringers 1000 ML Bag* 1,000 ML IV SCH (17:54)
[2018-12-26] MEDS ORDERED: Insulin LISPRO* FOR INSULIN PUMP SUBCUT SCH (19:00)
[2018-12-26 19:12] LABS: BUN/Creatinine Ratio 8.3 (8-20); Blood Urea Nitrogen 6 mg/dL (6-24); CO2 Carbon Dioxide 17 mmol/L (22-32); Calcium 7.8 mg/dL (8.6-10.3); Chloride 109 mmol/L (101-111); EGFR African American 108.6 (>60); EGFR Non-African American 89.7 (>60); Glucose 198 mg/dL (70-100); Sodium 133 mmol/L (135-145)
[2018-12-26 19:25] LABS: Anion Gap 7 mmol/L (2-11)
[2018-12-26 20:52] LABS: BUN/Creatinine Ratio 10.6 (8-20); EGFR Non-African American 99.2 (>60); Potassium 3.7 mmol/L (3.5-5.0)
[2018-12-26] MEDS ORDERED: INSULIN PUMP CONTROLLER SCH (21:00)
[2018-12-26] MEDS ORDERED: Nicotine Patch Removal NOTE PATCH OFF SCH (21:00)
[2018-12-27 02:51] LABS: BUN/Creatinine Ratio 10.7 (8-20); Calcium 8.4 mg/dL (8.6-10.3); EGFR African American 145.1 (>60); EGFR Non-African American 119.9 (>60); Potassium 3.5 mmol/L (3.5-5.0)
[2018-12-27 06:19] LABS: ABS Eosinophils 0.1 10^3/ul (0-0.6); ABS Monocytes 0.4 10^3/ul (0-0.8); ABS Neutrophils 2.8 10^3/ul (1.5-7.7); Eosinophil % 2.2 %; Hematocrit 38 % (35-47); Hemoglobin 13.3 g/dL (12.0-16.0); Lymphocyte % 37.6 %; Mean Corpuscular HGB Conc 35 g/dL (31-36); Mean Corpuscular Hemoglobin 35 pg (27-31); Mean Corpuscular Volume 102 fL (80-97); Mean Platelet Volume 8.2 fL (7.4-10.4); Nucleated Red Blood Cells % 0.2; Platelet Count 130 10^3/uL (150-450); Red Blood Count 3.76 10^6 /uL (3.70-4.87); Red Cell Distribution Width 14 % (10-15); White Blood Count 5.3 10^3/uL (3.5-10.8)
[2018-12-27 06:42] LABS: Calcium 8.4 mg/dL (8.6-10.3); EGFR African American 165.3 (>60); EGFR Non-African American 136.6 (>60); Potassium 3.5 mmol/L (3.5-5.0)
[2018-12-27] MEDS: Nicotine PATCH 21 MG/24 HR* PATCH TRANSDERM SCH (08:19)
[2018-12-27] MEDS: Lactated Ringers 1000 ML Bag* 1,000 ML IV SCH (09:03)
[2018-12-27 11:00] LABS: Magnesium 1.8 mg/dL (1.9-2.7); Phosphorus 1.6 mg/dL (2.5-5.0)
[2018-12-27 12:05] VITALS: BP 137/93
[2018-12-27] MEDS ORDERED: Magnesium Oxide TAB* 400 MG PO ONE (13:40)
[2018-12-27] MEDS ORDERED: Potassium & Sodium Phos 250MG* = 1 PACKET PO ONE (13:40)
--- NOTE | 2018-12-27 19:33 | DS ---
CC: Socorro Wilkerson NP * DISCHARGE SUMMARY: DATE OF ADMISSION: 12/26/18 DATE OF DISCHARGE: 12/27/18 PRIMARY CARE PROVIDER: Socorro Wilkerson NP FINAL DISCHARGE DIAGNOSES: 1. Diabetic ketoacidosis. 2. Diabetes mellitus, type 1. 3. Depression. HOSPITAL COURSE: The patient presented to [facility] on 12/26/18 for abdominal pain, nausea, vomiting for about 11 hours shortly after having dinner. Later that evening, she started having some abdominal pain, nausea, and vomiting. She come in to the hospital and she was not able to tolerate anything by mouth. In the emergency room, he had a white count of 11,000, glucose 282, anion gap 24, therefore she was admitted and started on insulin drip in ICU, IV fluid and transitioned back to her insulin pump by the morning. The patient was seen me by this morning. Her blood sugar was 59, already on insulin pump. She was given a snack and breakfast drink and reassessed shortly after lunch and before lunch her blood sugar was in the 180s. Able to bolus herself. She was maintained herself on the basal drip. Therefore after lunch, she feels better. No nausea or vomiting. I deem her stable for discharge. Follow up with primary care. I also gave her Dr. Soliz's number to call and setup an appointment based on her primary care discussion and referral. PHYSICAL EXAMINATION: Vital Signs: Pulse 103, respiratory rate 21, satting 100 %, pressure 137/93. General: He is awake, alert, and oriented. Head and Neck : Normocephalic, atraumatic. Lungs: Clear to auscultation bilaterally. Cardiovascular: S1, S2. Regular rate and rhythm. Abdomen: Positive bowel sounds. Soft, nontender, nondistended. DISCHARGE MEDICATIONS: Continue home medication: 1. Cymbalta 30 daily. 2. Vyvanse 60 daily. 3. Lispro (Humalog) as per scale. 4. Nicotine patch. DIAGNOSTIC STUDIES/LAB DATA: CBC was as high as 11,000 white count. Venous blood gas, pH 7.1, pCO2 of 30. Chemistry was significant anion gap as high as 24 on admission down to 7 x4 readings. Bicarb was as low as 11, up to 19; and blood sugar was 59 this morning, 175 post-breakfast, 212 before lunch, and 180s after lunch. Phosphorus 1.6, supplemented. Magnesium 1.8, supplemented. [id number]/[facility] #: [id number] [facility]
--- NOTE | 2018-12-29 20:03 | DS ---
DISCHARGE SUMMARY: ADDENDUM: DISCHARGE CONDITION: Stable. DISCHARGE DISPOSITION: Home. [id number]/[facility] #: [id number]
== END 2018-12-27 14:20 | disposition home or self-care (01) | DRG 420 ==
LOC: ED 08:47 → ICU 11:05
PROVIDERS: ADMIT Hospitalist; ATTEND Internal Medicine
DX: E10.10 Type 1 diabetes mellitus with ketoacidosis without coma (principal); F32.9 Major depressive disorder, single episode, unspecified; F41.9 Anxiety disorder, unspecified; F17.210 Nicotine dependence, cigarettes, uncomplicated; Z96.41 Presence of insulin pump (external) (internal); Z79.4 Long term (current) use of insulin; Z82.49 Family history of ischemic heart disease and other diseases of the circulatory system; Z82.3 Family history of stroke; Z72.89 Other problems related to lifestyle
CPT/HCPCS: 36415; 71045; 80048; 80053; 81003; 82803; 83605; 83735; 84100; 85025; 86140; 87040; 87641; 93005; 99285; A9270-GY; J1815; J2405

== ENCOUNTER 2019-08-08 12:03 | Inpatient (IN) | payer MEDICAID, OTHER ==
[2019-08-08] MEDS ORDERED: NS 0.9% 1000 ML** 2,000 ML IV ONE (12:21)
[2019-08-08 12:48] LABS: ABS Lymphocytes 1.1 10^3/ul (1.0-4.8); ABS Monocytes 0.5 10^3/ul (0-0.8); ABS Neutrophils 6.6 10^3/ul (1.5-7.7); Eosinophil % 0.1 %; Hematocrit 45 % (35-47); Lymphocyte % 13.3 %; Mean Corpuscular HGB Conc 35 g/dL (31-36); Mean Corpuscular Hemoglobin 37 pg (27-31); Mean Corpuscular Volume 105 fL (80-97); Mean Platelet Volume 8.8 fL (7.4-10.4); Nucleated Red Blood Cells % 0.2; Platelet Count 172 10^3/uL (150-450); Red Blood Count 4.32 10^6 /uL (3.70-4.87); Red Cell Distribution Width 14 % (10-15); White Blood Count 8.3 10^3/uL (3.5-10.8)
[2019-08-08 13:02] LABS: Urine Appearance Clear; Urine Bilirubin Negative (Negative); Urine Blood Negative (Negative); Urine Color Yellow; Urine Glucose 3+(>=500 mg/dL) (Negative); Urine Ketones 2+ (Negative); Urine Nitrite Negative (Negative); Urine Protein Negative (Negative); Urine Specific Gravity 1.012 (1.010-1.030); Urine Urobilinogen Negative (Negative)
[2019-08-08 13:11] LABS: Albumin 5.2 g/dL (3.2-5.2); Albumin/Globulin Ratio 1.9 (1-3); BUN/Creatinine Ratio 8.7 (8-20); C Reactive Protein 1.82 mg/L (<8.01); Calcium 9.7 mg/dL (8.6-10.3); EGFR African American 81.4 (>60); EGFR Non-African American 67.3 (>60); Globulin 2.7 g/dL (2-4); Potassium 4.8 mmol/L (3.5-5.0); Total Bilirubin 1.4 mg/dL (0.2-1.0); Total Protein 7.9 g/dL (6.4-8.9)
[2019-08-08] MEDS ORDERED: Insulin Infusion 100unit/100mL 100 UNIT/100 ML BAG IV ONE (13:15)
--- NOTE | 2019-08-08 13:26 | ED ---
Complex/Multi-Sys Presentation - HPI Summary HPI Summary: Patient is a 39 y/o type 1 diabetic female with Hx of DKA who presents to [facility] with complaints of N/V/D, SOB, chest pain, left shoulder pain and abdominal pain. Patient reports that she has been vomiting for the past four days. She measured her BG to be 350 this morning. Patient states that she had a similar presentation of Sx when she was in DKA previously, last episode of DKA is reported to have been last year. She notes abdominal pain is currently resolved and she denies blood in vomit or stool. She notes that her sister appears to have a GI virus currently. No Hx of cardiac issues reported. Patient has insulin pump. NKDA reported. Home medications and allergies are reviewed. Home Medications Medication Instructions Recorded Confirmed Type DULoxetine DR HENDRICKS* [Cymbalta CAP*] 30 mg PO DAILY 09/05/18 08/08/19 History Insulin Lispro [Admelog 100 0 units SUBCUT .USES PUMP 08/08/19 08/08/19 History units/ml 10 ml VIAL] - History Of Current Complaint Chief Complaint: EDDiabeticProb Time Seen by Provider: 08/08/19 12:16 Hx Obtained From: Patient Onset/Duration: Lasting Days Timing: Days Location: Pain At: - abdomen, chest, left shoulder Associated Signs And Symptoms: Positive: SOB, Chest Pain, Nausea, Vomiting, Diarrhea, Abdominal Pain, Other - positive - left shoulder pain; negative - blood in stool. Negative: Hematemesis - Allergies/Home Medications Allergies/Adverse Reactions: Allergies Allergy/AdvReac Type Severity Reaction Status Date / Time No Known Allergies Allergy Verified 09/05/18 03:28 Home Medications: Home Medications DULoxetine DR HENDRICKS* [Cymbalta CAP*] 30 mg PO DAILY 09/05/18 [History Confirmed ] Insulin Lispro [Admelog 100 units/ml 10 ml VIAL] 0 units SUBCUT .USES PUMP 08/08 [History Confirmed 08/08/19] PMH/Surg Hx/FS Hx/Imm Hx Endocrine/Hematology History: Reports: Hx Diabetes - type 1, Other Endocrine/ Hematological Disorders - DKA Sensory History: Denies: Hx Contacts or Glasses, Hx Legally Blind, Hx Deafness, Hx Hearing Aid Opthamlomology History: Denies: Hx Contacts or Glasses, Hx Legally Blind Psychiatric History: Reports: Hx Anxiety, Hx Depression, Other Psychiatric Issues/Disorders - Takes [place] Denies: Hx Attention Deficit Hyperactivity Disorder, Hx Eating Disorder, Hx Panic Disorder, Hx Post Traumatic Stress Disorder, Hx Inpatient Treatment, Hx Community Mental Health Tx, Hx Schizophrenia, Hx Bipolar Disorder, Hx Suicide Attempt, Hx of Violent Episodes Against Others Infectious Disease History: No Infectious Disease History: Denies: Hx Clostridium Difficile, Hx Hepatitis, Hx Human Immunodeficiency Virus (HIV), Hx of Known/Suspected MRSA, Hx Shingles, Hx Tuberculosis, History Other Infectious Disease, Traveled Outside the [place] in Last 30 Days - Family History Known Family History: Negative: Cardiac Disease, Diabetes - Social History Alcohol Use: Daily Alcohol Amount: 1/2 L of vodka a day Hx Substance Use: No Substance Use Type: Reports: None Hx Tobacco Use: Yes Smoking Status (MU): Heavy Every Day Tobacco Smoker Type: Cigarettes Have You Smoked in the Last Year: Yes Review of Systems Positive: Chest Pain Positive: Shortness Of Breath Positive: Abdominal Pain, Vomiting, Diarrhea, Nausea Musculoskeletal: Other - positive - left shoulder pain All Other Systems Reviewed And Are Negative: Yes Physical Exam - Summary Physical Exam Summary: Constitutional: Well-developed, Well-nourished, Alert. (-) Distressed Skin: Warm, Dry HENT: Normocephalic; Atraumatic Eyes: Conjunctiva normal Neck: Musculoskeletal ROM normal neck. (-) JVD, (-) Stridor, (-) Tracheal deviation Cardio: Tachycardic, Heart sounds normal; Intact distal pulses; The pedal pulses are 2+ and symmetric. Radial pulses are 2+ and symmetric. (-) Murmur Pulmonary/Chest wall: Effort normal. (-) Respiratory distress, (-) Wheezes, (-) Rales Abd: Soft, (-) tenderness, (-) Distension, (-) Guarding, (-) Rebound Musculoskeletal: (-) Edema Lymph: (-) Cervical adenopathy Neuro: Alert, Oriented x3 Psych: Mood and affect Normal Triage Information Reviewed: Yes Vital Signs On Initial Exam: Initial Vitals Temp Pulse Resp BP Pulse Ox 97.8 F 124 18 128/86 100 08/08/19 12:05 08/08/19 12:05 08/08/19 12:08/08/19 12:08/08/19 12:05 Vital Signs Reviewed: Yes Procedures - Sedation Patient Received Moderate/Deep Sedation with Procedure: No Diagnostics - Vital Signs Vital Signs Temp Pulse Resp BP Pulse Ox 08/08/19 12:05 97.8 F 124 18 128/86 100 - Laboratory Lab Results: Lab Results 08/08/19 08/08/19 08/08/19 Range/Units 12:16 12:18 12:36 WBC 8.3 (3.5-10.8) 10^3/uL RBC 4.32 (3.70-4.87) 10^6 /uL Hgb 16.0 (12.0-16.0) g/dL Hct 45 (35-47) % MCV 105 H (80-97) fL MCH 37 H (27-31) pg MCHC 35 (31-36) g/dL RDW 14 (10-15) % Plt Count 172 (150-450) 10^3/uL MPV 8.8 (7.4-10.4) fL Neut % (Auto) 80.2 % Lymph % (Auto) 13.3 % [place] % (Auto) 5.9 % Eos % (Auto) 0.1 % Baso % (Auto) 0.5 % Absolute Neuts (auto) 6.6 (1.5-7.7) 10^3/ul Absolute Lymphs (auto) 1.1 (1.0-4.8) 10^3/ul Absolute Monos (auto) 0.5 (0-0.8) 10^3/ul Absolute Eos (auto) 0.0 (0-0.6) 10^3/ul Absolute Basos (auto) 0.0 (0-0.2) 10^3/ul Absolute Nucleated RBC 0.0 10^3/ul Nucleated RBC % 0.2 VBG pH (7.32-7.43) VBG pCO2 (41-51) mmHg VBG pO2 (35-45) mmHg VBG HCO3 (24-28) mmol/L VBG O2 Saturation (70-80) % VBG Base Excess (0.0-4.0) mmol/L Sodium (135-145) mmol/L Potassium (3.5-5.0) mmol/L Chloride (101-111) mmol/L Carbon Dioxide (22-32) mmol/L Anion Gap (2-11) mmol/L BUN (6-24) mg/dL Creatinine (0.51-0.95) mg/dL Est GFR ( Amer) (>60) Est GFR (Non-Af Amer) (>60) BUN/Creatinine Ratio (8-20) Glucose (70-100) mg/dL POC Glucose (mg/dL) 270 H (70-100) mg/dL Lactic Acid (0.5-2.0) mmol/L Calcium (8.6-10.3) mg/dL Total Bilirubin (0.2-1.0) mg/dL AST (13-39) U/L ALT (7-52) U/L Alkaline Phosphatase (34-104) U/L C-Reactive Protein (<8.01) mg/L Total Protein (6.4-8.9) g/dL Albumin (3.2-5.2) g/dL Globulin (2-4) g/dL Albumin/Globulin Ratio (1-3) Urine Color Yellow Urine Appearance Clear Urine pH 5.0 (5-9) Ur Specific [place] 1.012 (1.010-1.030) Urine Protein Negative (Negative) Urine Ketones 2+ A (Negative) Urine Blood Negative (Negative) Urine Nitrate Negative (Negative) Urine Bilirubin Negative (Negative) Urine Urobilinogen Negative (Negative) Ur Leukocyte Esterase Negative (Negative) Urine Glucose 3+(>=500 mg/dl) A (Negative) 08/08/19 08/08/19 08/08/19 Range/Units 12:36 12:36 12:36 WBC (3.5-10.8) 10^3/uL RBC (3.70-4.87) 10^6 /uL Hgb (12.0-16.0) g/dL Hct (35-47) % MCV (80-97) fL MCH (27-31) pg MCHC (31-36) g/dL RDW (10-15) % Plt Count (150-450) 10^3/uL MPV (7.4-10.4) fL Neut % (Auto) % Lymph % (Auto) % [place] % (Auto) % Eos % (Auto) % Baso % (Auto) % Absolute Neuts (auto) (1.5-7.7) 10^3/ul Absolute Lymphs (auto) (1.0-4.8) 10^3/ul Absolute Monos (auto) (0-0.8) 10^3/ul Absolute Eos (auto) (0-0.6) 10^3/ul Absolute Basos (auto) (0-0.2) 10^3/ul Absolute Nucleated RBC 10^3/ul Nucleated RBC % VBG pH 7.19 L (7.32-7.43) VBG pCO2 32 L (41-51) mmHg VBG pO2 < 38.0 (35-45) mmHg VBG HCO3 12.3 L (24-28) mmol/L VBG O2 Saturation 60.8 L (70-80) % VBG Base Excess -14.8 L (0.0-4.0) mmol/L Sodium 131 L (135-145) mmol/L Potassium 4.8 (3.5-5.0) mmol/L Chloride 92 L (101-111) mmol/L Carbon Dioxide 12 L* (22-32) mmol/L Anion Gap 27 H (2-11) mmol/L BUN 8 (6-24) mg/dL Creatinine 0.92 (0.51-0.95) mg/dL Est GFR ( Amer) 81.4 (>60) Est GFR (Non-Af Amer) 67.3 (>60) BUN/Creatinine Ratio 8.7 (8-20) Glucose 296 H (70-100) mg/dL POC Glucose (mg/dL) (70-100) mg/dL Lactic Acid 1.9 (0.5-2.0) mmol/L Calcium 9.7 (8.6-10.3) mg/dL Total Bilirubin 1.40 H (0.2-1.0) mg/dL AST 56 H (13-39) U/L ALT 37 (7-52) U/L Alkaline Phosphatase 58 (34-104) U/L C-Reactive Protein 1.82 (<8.01) mg/L Total Protein 7.9 (6.4-8.9) g/dL Albumin 5.2 (3.2-5.2) g/dL Globulin 2.7 (2-4) g/dL Albumin/Globulin Ratio 1.9 (1-3) Urine Color Urine Appearance Urine pH (5-9) Ur Specific [place] (1.010-1.030) Urine Protein (Negative) Urine Ketones (Negative) Urine Blood (Negative) Urine Nitrate (Negative) Urine Bilirubin (Negative) Urine Urobilinogen (Negative) Ur Leukocyte Esterase (Negative) Urine Glucose (Negative) Result Diagrams: 08/08/19 12:36 08/08/19 12:36 Lab Statement: Any lab studies that have been ordered have been reviewed, and results considered in the medical decision making process. Complex Multi-Symp Course/Dx Course Of Treatment: Patient is a 39 y/o type 1 diabetic female with Hx of DKA who presents to [facility] with complaints of N/V/D, SOB, chest pain, left shoulder pain and abdominal pain. Patient reports that she has been vomiting for the past four days. She measured her BG to be 350 this morning. Patient states that she had a similar presentation of Sx when she was in DKA previously, last episode of DKA is reported to have been last year. She notes abdominal pain is currently resolved and she denies blood in vomit or stool. She notes that her sister appears to have a GI virus currently. No Hx of cardiac issues reported. Patient has insulin pump. NKDA reported. On physical exam, patient is noted to be tachycardic. UA showed 2+ ketones and 3+ glucose. Bloodwork was obtained, abnormal values include 105 MCV, MCH 37, sodium 131, chloride 92, anion gap 27, carbon dioxide 12, glucose 296, total bilirubin 1.4, AST 56. During ED course, patient received fluids and insulin 100 units in 100 mls @ 5.897 mls/hr IV. 1323 Patients case was discussed with Dr. Cordell Charles recommends ICU consult. 1324 Patients case discussed with Dr. Moreira, bow rehairer, Dr. Moreira accepts for admission. - Diagnoses Provider Diagnoses: DKA, type 1, Gastroenteritis - Physician Notifications Discussed Care Of Patient With: Rachael Landa Time Discussed With Above Provider: 13:23 Instructed by Provider To: Other - 1323 Patients case was discussed with Dr. Cordell Charles recommends ICU consult. 1324 Patients case discussed with Dr. Lillie Ball accepts for admission. - Critical Care Time Critical Care Time: 30-74 min Discharge ED - Sign-Out/Discharge Documenting (check all that apply): Patient Departure - admit - Discharge Plan Condition: Stable Disposition: ADMITTED TO [facility] - Billing Disposition and Condition Condition: STABLE Disposition: Admitted to [facility] - Attestation Statements Document Initiated by Tamera: Yes Documenting Scribe: THONY DIAZ Provider For Whom Tamera is Documenting (Include Credential): BYRSON PATEL DO [employer] Attestation: THONY Guthrie, scribed for BRYSON PATEL DO on 08/08/19 at 1441. Scribe Documentation Reviewed: Yes Provider Attestation: The documentation as recorded by the THONY deleon accurately reflects the service I personally performed and the decisions made by , BRYSON PATEL DO Status of Scribe Document: Viewed
[2019-08-08] MEDS ORDERED: Dextrose 50% Syringe 50 ML* 25 GM/50 ML SYRINGE IV PUSH PRN (14:08)
[2019-08-08] MEDS ORDERED: Ondansetron INJ* 2 MG/ML VIAL IV PRN (14:15)
--- NOTE | 2019-08-08 14:44 | HP ---
H&P (Free Text) History and Physical: HISTORY AND PHYSICAL DATE OF ADMISSION: 08/08/19 ATTENDING PHYSICIAN: Dr Janie Moreira CHIEF COMPLAINT: Abdominal pain, vomiting, chest tightness, shortness of breath HPI: 39F with known medical history of type 1 diabetes, presents with abdominal pain, vomiting, chest tightness, shortness of breath and shoulder tightness since she woke up this morning. She states that she is in DKA because these are the symptoms she usually gets. She has had a gastric illness with vomiting and diarrhea starting 4 days prior to admission. However her stomach has not been painful until this morning. Has been able to tolerate small amounts of food. VBG on admission shows 7.19/32/<38/12.3, Na 131, K 4.8, Chl 92, CO2 12, anion gap 27, serum glucose 296. She was given 2L fluid, started on insulin drip and admitted to ICU. ROS: negative except for pertinent positives mentioned above PMHx: Diabetes Mellitus type 1, depression, anxiety PSHx: None Family History: Father had stroke at age 60 and Mother has HTN. Sister has no medical problems Social History: Current 1PPD cigarette smoker, drinks 1-2 alcoholic beverages per day, denies drug use. Allergies: NKDA Home Medications: DULoxetine DR CAP* [Cymbalta CAP*] 30 mg PO DAILY 09/05/18 [History Confirmed ] Insulin Lispro [Admelog 100 units/ml 10 ml VIAL] 0 units SUBCUT .USES PUMP 08/08 [History Confirmed 08/08/19] Tele: Sinus tachy Vitals: Vital Signs 08/08/19 12:05 Temperature 97.8 F Pulse Rate 124 Respiratory 18 Rate Blood Pressure 128/86 (mmHg) O2 Sat by Pulse 100 Oximetry Intake and Output Last 24 Hours 08/06/19 08/07/19 08/08/19 08/09/19 06:59 06:59 06:59 06:59 Intake Total 1999 Balance 1999 Weight 130 lb Intake: IV Fluids 1999 O2: RA Infusions: Insulin drip per protocol Current Medications: Dextrose (D50w Syringe 50 Ml*) 25 gm IV PUSH .FOR FS < 60 - SS PRN PRN Reason: FS < 60 Duloxetine HCl (Cymbalta Cap*) 30 mg PO DAILY KALYN Insulin Human Regular (Insulin Regular Iv Infusion 1 Unit/Ml) 100 unit in 100 mls @ 5.897 mls/hr IV PER RATE ONE Stop: 08/09/19 06:12 Last Admin: 08/08/19 13:52 Dose: 5.897 mls/hr Dextrose/Sodium Chloride (D5ns 0.9% 1000 Ml Bag*) 1,000 mls @ 125 mls/hr IV PER RATE KALYN Ondansetron HCl (Zofran Inj*) 4 mg IV Q6H PRN PRN Reason: NAUSEA Physical Exam: Constitutional: awake, alert, no distress, no diaphoresis Head: normocephalic, atraumatic Eyes: no pallor, no icterus ENT: moist mucous membranes Neck: soft, supple, no jvd, no stridor CVS: tachycardic, regular, no murmur Chest/Resp: bilateral air entry, no rhales, no wheeze, no rhonchi, no acc muscle use Abdomen/GI: soft, nontender, nondistended, BS+ Ext/Msk: warm, pulses+, no edema Skin: intact, warm Neuro: awake, alert, orientedx3, moving all extremities, no gross focal deficit Psych: normal affect Labs: Laboratory Results - last 24 hr 08/08/19 08/08/19 08/08/19 12:16 12:18 12:36 WBC 8.3 RBC 4.32 Hgb 16.0 Hct 45 MCV 105 H MCH 37 H MCHC 35 RDW 14 Plt Count 172 MPV 8.8 Neut % (Auto) 80.2 Lymph % (Auto) 13.3 [place] % (Auto) 5.9 Eos % (Auto) 0.1 Baso % (Auto) 0.5 Absolute Neuts (auto) 6.6 Absolute Lymphs (auto) 1.1 Absolute Monos (auto) 0.5 Absolute Eos (auto) 0.0 Absolute Basos (auto) 0.0 Absolute Nucleated RBC 0.0 Nucleated RBC % 0.2 VBG pH VBG pCO2 VBG pO2 VBG HCO3 VBG O2 Saturation VBG Base Excess Sodium Potassium Chloride Carbon Dioxide Anion Gap BUN Creatinine Est GFR ( Amer) Est GFR (Non-Af Amer) BUN/Creatinine Ratio Glucose POC Glucose (mg/dL) 270 H Lactic Acid Calcium Total Bilirubin AST ALT Alkaline Phosphatase C-Reactive Protein Total Protein Albumin Globulin Albumin/Globulin Ratio Urine Color Yellow Urine Appearance Clear Urine pH 5.0 Ur Specific [place] 1.012 Urine Protein Negative Urine Ketones 2+ A Urine Blood Negative Urine Nitrate Negative Urine Bilirubin Negative Urine Urobilinogen Negative Ur Leukocyte Esterase Negative Urine Glucose 3+(>=500 mg/dl) A 08/08/19 08/08/19 08/08/19 12:36 12:36 12:36 WBC RBC Hgb Hct MCV MCH MCHC RDW Plt Count MPV Neut % (Auto) Lymph % (Auto) [place] % (Auto) Eos % (Auto) Baso % (Auto) Absolute Neuts (auto) Absolute Lymphs (auto) Absolute Monos (auto) Absolute Eos (auto) Absolute Basos (auto) Absolute Nucleated RBC Nucleated RBC % VBG pH 7.19 L VBG pCO2 32 L VBG pO2 < 38.0 VBG HCO3 12.3 L VBG O2 Saturation 60.8 L VBG Base Excess -14.8 L Sodium 131 L Potassium 4.8 Chloride 92 L Carbon Dioxide 12 L* Anion Gap 27 H BUN 8 Creatinine 0.92 Est GFR ( Amer) 81.4 Est GFR (Non-Af Amer) 67.3 BUN/Creatinine Ratio 8.7 Glucose 296 H POC Glucose (mg/dL) Lactic Acid 1.9 Calcium 9.7 Total Bilirubin 1.40 H AST 56 H ALT 37 Alkaline Phosphatase 58 C-Reactive Protein 1.82 Total Protein 7.9 Albumin 5.2 Globulin 2.7 Albumin/Globulin Ratio 1.9 Urine Color Urine Appearance Urine pH Ur Specific [place] Urine Protein Urine Ketones Urine Blood Urine Nitrate Urine Bilirubin Urine Urobilinogen Ur Leukocyte Esterase Urine Glucose 08/08/19 14:11 WBC RBC Hgb Hct MCV MCH MCHC RDW Plt Count MPV Neut % (Auto) Lymph % (Auto) [place] % (Auto) Eos % (Auto) Baso % (Auto) Absolute Neuts (auto) Absolute Lymphs (auto) Absolute Monos (auto) Absolute Eos (auto) Absolute Basos (auto) Absolute Nucleated RBC Nucleated RBC % VBG pH VBG pCO2 VBG pO2 VBG HCO3 VBG O2 Saturation VBG Base Excess Sodium Potassium Chloride Carbon Dioxide Anion Gap BUN Creatinine Est GFR ( Amer) Est GFR (Non-Af Amer) BUN/Creatinine Ratio Glucose POC Glucose (mg/dL) 229 H Lactic Acid Calcium Total Bilirubin AST ALT Alkaline Phosphatase C-Reactive Protein Total Protein Albumin Globulin Albumin/Globulin Ratio Urine Color Urine Appearance Urine pH Ur Specific [place] Urine Protein Urine Ketones Urine Blood Urine Nitrate Urine Bilirubin Urine Urobilinogen Ur Leukocyte Esterase Urine Glucose Imaging: None Assessment: 39F with known medical history of diabetes mellitus type 1, who presents with abdominal pain, comiting, SOB, should and chest tightness. She states she is in DKA. She has also had a gastric illness with vomiting and diarrhea starting 4 days prior to admission. Na 141, K 4.8, CO2 12, anion gap 27. Given 2L fluid and started on insulin drip. - DKA Plan: Neuro- - No active issues -Delirium prec; avoid BDZ CVS- - No active issues -Maintain MAP>65 as long as SBP<160 Resp- - No active issues -Keep sat>92% - Aspiration prec, Pulmonary Toilet ID- - No active issues - Goal temp<101 GI- -Nutrition: NPO for now -GI prophylaxis: not indicated Renal/Endocrine- -DKA: acute. Has had other hospitalizations for this in the past. - D5 NS @ 125cc/hr - BMP q4hr until stable -strict I/O, replete to keep K>4, Mg>2 -Voiding Heme- - No active issues Musculsk- pressure ulcer prophylaxis. OOB Wounds- none Nutrition-NPO DVT prophylaxis: NA GI prophylaxis: NA Disposition: Admit to ICU; Expected LOS>2 midnights; Patient requires Critical Care/ICU for DKA Patient Clinical Status: stable Code Status: Full Total Critical Care time is 45minutes
[2019-08-08] MEDS ORDERED: D5NS 0.9% 1000 ML BAG* 1,000 ML IV SCH ×2 (15:00→22:00)
[2019-08-08] MEDS: Nicotine PATCH 21 MG/24 HR* PATCH TRANSDERM SCH (15:39)
[2019-08-08] MEDS: DULoxetine DR CAP* 30 MG CAP.DR PO SCH (15:39)
[2019-08-08] MEDS: Dextran 70/Hypromellose Tears Eye Drops 15 ml BTL (for Artificials Tears) BOTH EYES SCH ×2 (15:39→20:04)
[2019-08-08] MEDS ORDERED: Insulin Infusion 100unit/100mL 100 UNIT/100 ML BAG IV SCH (16:00)
[2019-08-08 16:40] LABS: BUN/Creatinine Ratio 7.2 (8-20); Calcium 7.9 mg/dL (8.6-10.3); EGFR African American 91.7 (>60); EGFR Non-African American 75.8 (>60); Potassium 4.1 mmol/L (3.5-5.0)
[2019-08-08 20:51] LABS: BUN/Creatinine Ratio 7.9 (8-20); Calcium 7.9 mg/dL (8.6-10.3); EGFR African American 101.5 (>60); EGFR Non-African American 83.9 (>60); Potassium 3.5 mmol/L (3.5-5.0)
--- NOTE | 2019-08-08 21:32 | PN ---
Hospitalist Progress Note Date of Service: 08/08/19 HOSPITALIST ADDENDUM Received sign out from Dr Moreira. Patient re-evaluated - feels well, hungry, and really wants to switch back to her insulin pump. Vital signs 08/08/19 08/08/19 19:30 20:00 Temperature 99.6 F Heart Rate 115 Respiratory 19 Rate Blood Pressure 126/82 (mmHg) O2 Sat by Pulse 97 Oximetry Laboratory Tests 08/08/19 20:28 Sodium 134 L Potassium 3.5 Chloride 106 Carbon Dioxide 20 L Anion Gap 8 BUN/Creatinine Ratio 7.9 L Glucose 166 H Calcium 7.9 L Phosphorus 1.0 L As her AG is closed, will continue IVF, replete electrolytes, resume insulin pump and continue to monitor closely. Explained to patient if her numbers starts to climb up again, will switch back to insulin drip.
[2019-08-08] MEDS ORDERED: NS 0.9% 1000 ML** 1,000 ML IV SCH (21:45)
[2019-08-08] MEDS ORDERED: Insulin LISPRO* FOR INSULIN PUMP SUBCUT SCH (22:00)
[2019-08-08] MEDS: Insulin LISPRO* 1 UNITS UNIT SUBCUT SCH (22:04)
[2019-08-08] MEDS ORDERED: Potassium Phosphate IV* 10 MMOLE in NS 0.9% 250 ML* 250 ML IVPB ONE (23:00)
[2019-08-09] MEDS: Dextran 70/Hypromellose Tears Eye Drops 15 ml BTL (for Artificials Tears) BOTH EYES SCH ×3 (00:07→07:59)
[2019-08-09] MEDS: Insulin LISPRO* 1 UNITS UNIT SUBCUT SCH ×5 (00:17→08:12)
[2019-08-09 00:47] LABS: BUN/Creatinine Ratio 7.8 (8-20); EGFR Non-African American 82.6 (>60); Potassium 3.6 mmol/L (3.5-5.0)
[2019-08-09 02:09] LABS: Phosphorus 2.3 mg/dL (2.5-5.0)
[2019-08-09 05:44] LABS: Calcium 7.6 mg/dL (8.6-10.3); Potassium 3.8 mmol/L (3.5-5.0)
[2019-08-09 05:48] LABS: Albumin 3.3 g/dL (3.2-5.2); Indirect Bilirubin 0.4 mg/dL (0.3-1.0); Total Bilirubin 0.5 mg/dL (0.2-1.0)
[2019-08-09 05:49] LABS: BUN/Creatinine Ratio 8.7 (8-20); EGFR African American 113.4 (>60); EGFR Non-African American 93.8 (>60)
[2019-08-09 05:54] LABS: Albumin/Globulin Ratio 1.9 (1-3); Globulin 1.7 g/dL (2-4)
[2019-08-09] MEDS ORDERED: Ibuprofen TAB* 400 MG PO PRN ×2 (07:07→07:12)
[2019-08-09 07:59] LABS: Influenza A Molecular Negative (Negative); Influenza B Molecular Negative (Negative)
[2019-08-09] MEDS ORDERED: Nicotine Patch Removal NOTE PATCH OFF SCH (08:45)
[2019-08-09] MEDS: Nicotine PATCH 21 MG/24 HR* PATCH TRANSDERM SCH (08:48)
[2019-08-09] MEDS: DULoxetine DR CAP* 30 MG CAP.DR PO SCH (08:48)
[2019-08-09] MEDS ORDERED: Insulin LISPRO* 1 UNITS UNIT SUBCUT SCH (09:00)
[2019-08-09] MEDS ORDERED: DULoxetine DR CAP* 30 MG CAP.DR PO SCH (09:00)
--- NOTE | 2019-08-09 09:04 | DS ---
DISCHARGE SUMMARY DATE OF ADMISSION: 08/08/19 DATE OF DISCHARGE: 08/09/19 FINAL DISCHARGE DIAGNOSES: 1. Diabetic ketoacidosis 2. Diabetes Mellitus type 1 3. Depression HOSPITAL COURSE: 39F with known medical history of type 1 diabetes, DKA, and depression, presents on 08/08/19 with complaints of abdominal pain, chest pain, shoulder pain, shortness of breath. She stated she knew she was in DKA since these are her normal symptoms. 4 days prior to admission, patient was experiencing a gastric illness with nausea, vomiting and diarrhea. On admission , Na 131, Ch 92, CO2 12, anion gap 27, serum BG 296, VB.19/32/<38/12.3. She was hydrated and started on insulin drip. Anion gap closed, IVF and insulin drip were both weaned off, and she was started back on her insulin pump. Tolerating PO and symptoms have resolved. Patient is being discharged back home. DISCHARGE MEDICATIONS: 1. Insulin Lispro (Admelog 100units/ml 10ml vial) 2. Cymbalta CONDITION: Stable
[2019-08-09 10:34] VITALS: BP 128/81
== END 2019-08-09 11:00 | disposition home or self-care (01) | DRG 420 ==
LOC: ED 12:03 → ICU 14:04
PROVIDERS: ADMIT Surgery Surgical Critical Care; ATTEND Surgery Surgical Critical Care
DX: E10.10 Type 1 diabetes mellitus with ketoacidosis without coma (principal); F41.9 Anxiety disorder, unspecified; F32.9 Major depressive disorder, single episode, unspecified; F17.210 Nicotine dependence, cigarettes, uncomplicated; Z96.41 Presence of insulin pump (external) (internal); Z79.4 Long term (current) use of insulin
CPT/HCPCS: 36415; 80048; 80053; 80076; 81003; 82803; 83605; 84100; 85025; 86140; 87641; 99285; A9270-GY

== ENCOUNTER 2020-02-29 11:29 | Inpatient (IN) ==
[2020-02-29] MEDS ORDERED: NS 0.9% 1000 ml BAG 1,000 ML IV ONE ×2 (11:40→11:55)
[2020-02-29 12:22] LABS: ABS Basophils 0.1 10^3/ul (0-0.2); ABS Eosinophils 0.1 10^3/ul (0-0.6); ABS Lymphocytes 1.6 10^3/ul (1.0-4.8); ABS Monocytes 0.6 10^3/ul (0-0.8); ABS Neutrophils 5.6 10^3/ul (1.5-7.7); Eosinophil % 1.1 %; Hematocrit 47 % (35-47); Hemoglobin 15.8 g/dL (12.0-16.0); Lymphocyte % 20.7 %; Mean Corpuscular HGB Conc 34 g/dL (31-36); Mean Corpuscular Hemoglobin 38 pg (27-31); Mean Corpuscular Volume 113 fL (80-97); Mean Platelet Volume 8.6 fL (7.4-10.4); Nucleated Red Blood Cells % 0.2; Platelet Count 214 10^3/uL (150-450); Red Blood Count 4.11 10^6 /uL (3.70-4.87); Red Cell Distribution Width 16 % (10-15); White Blood Count 7.9 10^3/uL (3.5-10.8)
[2020-02-29 12:38] LABS: Albumin 5.1 g/dL (3.2-5.2); Albumin/Globulin Ratio 1.8 (1-3); BUN/Creatinine Ratio 9.9 (8-20); C Reactive Protein 2.97 mg/L (<8.01); Calcium 9.4 mg/dL (8.6-10.3); EGFR African American 65.5 (>60); EGFR Non-African American 54.2 (>60); Globulin 2.9 g/dL (2-4); Total Bilirubin 0.6 mg/dL (0.2-1.0)
[2020-02-29 12:42] LABS: Potassium 5.4 mmol/L (3.5-5.0)
[2020-02-29] MEDS ORDERED: Insulin Infusion 100unit/100mL 100 UNIT/100 ML BAG IV ONE (12:46)
[2020-02-29] MEDS ORDERED: Insulin Infusion 100unit/100mL 100 UNIT/100 ML BAG IV SCH (14:00)
[2020-02-29] MEDS ORDERED: NS 0.9% 1000 ml BAG 1,000 ML IV SCH (14:15)
[2020-02-29] MEDS ORDERED: Famotidine IV 10 MG/ML 2 ml VIAL (20 mg) IV SLOW PU ONE (14:48)
[2020-02-29] MEDS ORDERED: Folic Acid 1 mg SYRINGE 0.2 ML SYRINGE IV SCH (15:00)
[2020-02-29] MEDS ORDERED: Thiamine 100 MG/ML 2 ml VIAL (200 mg) IV SCH (15:00)
[2020-02-29] MEDS ORDERED: Thiamine IV 100 MG in NS 0.9% 50 ML Q24H IV SCH (15:00)
[2020-02-29 15:22] LABS: Urine Appearance Clear; Urine Bilirubin Negative (Negative); Urine Blood 1+ (Negative); Urine Color Straw; Urine Glucose 3+(>=500 mg/dL) (Negative); Urine Ketones 2+ (Negative); Urine Nitrite Negative (Negative); Urine Protein 2+(100 mg/dL) (Negative); Urine Specific Gravity 1.014 (1.010-1.030); Urine Urobilinogen Negative (Negative)
[2020-02-29 15:25] LABS: Urine Bacteria 1+ (Absent); Urine Red Blood Cell 1+(3-5/hpf) (Absent); Urine Squamous Epithelial Cell Present (Absent); Urine White Blood Cell Trace(0-5/hpf) (Absent)
[2020-02-29] MEDS: Nicotine PATCH 14 MG/24 HR PATCH TRANSDERM SCH (16:27)
[2020-02-29] MEDS: Multivitamins/Minerals TAB PO SCH (16:29)
[2020-02-29 16:51] LABS: Albumin 4.2 g/dL (3.2-5.2); Albumin/Globulin Ratio 1.6 (1-3); BUN/Creatinine Ratio 11.4 (8-20); EGFR African American 85.7 (>60); EGFR Non-African American 70.8 (>60); Globulin 2.7 g/dL (2-4); Potassium 4.2 mmol/L (3.5-5.0); Total Bilirubin 0.4 mg/dL (0.2-1.0); Total Protein 6.9 g/dL (6.4-8.9)
[2020-02-29 17:13] LABS: Magnesium 1.9 mg/dL (1.9-2.7)
[2020-02-29] MEDS ORDERED: Sodium Bicarbonate 8.4% SYR 50 ml SYRINGE IV ONE (17:21)
[2020-02-29] MEDS ORDERED: D5NS 0.9% 1000 ml BAG 1,000 ML IV SCH ×3 (18:00→19:24)
[2020-02-29 20:26] LABS: BUN/Creatinine Ratio 10.4 (8-20); Calcium 7.9 mg/dL (8.6-10.3); EGFR Non-African American 82.6 (>60); Potassium 3.7 mmol/L (3.5-5.0)
[2020-02-29] MEDS: Heparin 5000 UNITS/ML 1 mL VIAL SUBCUT SCH (21:55)
[2020-03-01 00:27] LABS: BUN/Creatinine Ratio 10.3 (8-20); Calcium 8.1 mg/dL (8.6-10.3); EGFR African American 115.4 (>60); EGFR Non-African American 95.4 (>60); Potassium 3.2 mmol/L (3.5-5.0)
[2020-03-01] MEDS ORDERED: KCL 10 MEQ/50 ML IVPREMIX 10 MEQ/50 ML BAG IV ONE (00:37)
[2020-03-01 01:10] LABS: Phosphorus 1.2 mg/dL (2.5-5.0)
[2020-03-01] MEDS ORDERED: Potassium Phosphate IV 15 MMOLE in NS 0.9% 250 ml 250 ML IVPB ONE (02:30)
[2020-03-01 05:22] LABS: BUN/Creatinine Ratio 10.2 (8-20); Calcium 7.8 mg/dL (8.6-10.3); EGFR African American 135.9 (>60); EGFR Non-African American 112.3 (>60); Phosphorus 2.1 mg/dL (2.5-5.0); Potassium 3.3 mmol/L (3.5-5.0)
[2020-03-01 05:41] LABS: ABS Eosinophils 0.1 10^3/ul (0-0.6); ABS Lymphocytes 1.8 10^3/ul (1.0-4.8); ABS Monocytes 0.3 10^3/ul (0-0.8); Hematocrit 36 % (35-47); Hemoglobin 12.3 g/dL (12.0-16.0); Mean Corpuscular HGB Conc 34 g/dL (31-36); Mean Corpuscular Hemoglobin 37 pg (27-31); Mean Corpuscular Volume 110 fL (80-97); Mean Platelet Volume 8.4 fL (7.4-10.4); Nucleated Red Blood Cells % 0.3; Platelet Count 161 10^3/uL (150-450); Red Blood Count 3.29 10^6 /uL (3.70-4.87); Red Cell Distribution Width 16 % (10-15); White Blood Count 4.3 10^3/uL (3.5-10.8)
[2020-03-01] MEDS: Heparin 5000 UNITS/ML 1 mL VIAL SUBCUT SCH ×2 (06:04→14:32)
[2020-03-01] MEDS ORDERED: D5NS 0.9% 1000 ml BAG 1,000 ML IV SCH (06:24)
[2020-03-01 07:24] LABS: Magnesium 1.7 mg/dL (1.9-2.7)
[2020-03-01] MEDS ORDERED: Dextrose 50% Syringe 50 ml 25 GM/50 ML SYRINGE IV PUSH PRN (07:26)
[2020-03-01] MEDS ORDERED: Magnesium Sulfate 2 gm BAG 2 GM/50 ML BAG IVPB ONE (07:35)
[2020-03-01] MEDS ORDERED: Insulin GLARGINE 100 un/ml 10 ml VIAL SUBCUT SCH (08:00)
[2020-03-01] MEDS: Nicotine PATCH 14 MG/24 HR PATCH TRANSDERM SCH (08:56)
[2020-03-01] MEDS: Multivitamins/Minerals TAB PO SCH (08:56)
[2020-03-01] MEDS ORDERED: Influenza VAC *QUAD* 2020-21* 0.5 ML SYRINGE IM ONE (09:00)
[2020-03-01 09:37] LABS: BUN/Creatinine Ratio 10.5 (8-20); Calcium 7.7 mg/dL (8.6-10.3); EGFR African American 141.4 (>60); EGFR Non-African American 116.9 (>60); Potassium 3.9 mmol/L (3.5-5.0)
[2020-03-01] MEDS ORDERED: Insulin LISPRO* FOR INSULIN PUMP SUBCUT SCH (12:00)
[2020-03-01 15:48] VITALS: BP 137/86
[2020-03-07 08:48] LABS: Anti GAD 65 Antibody 1.37 nmol/L (<= 0.02)
== END 2020-03-01 19:20 | disposition home or self-care (01) | DRG 420 ==
LOC: ED 11:29 → ICU 13:05
PROVIDERS: ADMIT Internal Medicine; ATTEND Internal Medicine

== ENCOUNTER 2021-07-20 20:43 | Inpatient (IN) ==
[2021-07-20] MEDS ORDERED: Lactated Ringers 1000 ml BAG 1,000 ML IV ONE ×3 (21:02→23:46)
[2021-07-20 21:22] LABS: INR 0.9 (0.86-1.15)
[2021-07-20 21:26] LABS: Hematocrit 43 % (35-47); Hemoglobin 14.1 g/dL (12.0-16.0); Mean Corpuscular HGB Conc 33 g/dL (31-36); Mean Corpuscular Hemoglobin 40 pg (27-31); Mean Corpuscular Volume 121 fL (80-97); Mean Platelet Volume 10.3 fL (7.4-10.4); Platelet Count 121 10^3/uL (150-450); Red Blood Count 3.54 10^6 /uL (3.70-4.87); Red Cell Distribution Width 15 % (10-15); White Blood Count 10.9 10^3/uL (3.5-10.8)
[2021-07-20 21:34] LABS: ALT 91 U/L (7-52); Albumin/Globulin Ratio 1.5 (1-3); Alkaline Phosphatase 242 U/L (35-149); Blood Urea Nitrogen 18 mg/dL (6-24); Calcium 9.6 mg/dL (8.6-10.3); Chloride 83 mmol/L (101-111); Globulin 2.7 g/dL (2-4); Sodium 129 mmol/L (135-145); Total Protein 6.7 g/dL (6.4-8.9)
[2021-07-20 21:45] LABS: CO2 Carbon Dioxide < 7 mmol/L (22-32); Glucose 781 mg/dL (70-100)
[2021-07-20 22:08] LABS: ABS Lymphocytes 1.5 10^3/ul (1.0-4.8); ABS Neutrophils 8.4 10^3/ul (1.5-7.7); ABS Nucleated RBC 0.1 10^3/ul; Eosinophil % 0.2 %; Lymphocyte % 13.4 %; Nucleated Red Blood Cells % 0.5
[2021-07-20] MEDS: Insulin Infusion 100unit/100mL 100 UNIT/100 ML BAG IV ONE ×2 (22:22→22:29)
[2021-07-20] MEDS ORDERED: Insulin Drip - @ 0.1 unit/kg/hr IV ONE (22:27)
[2021-07-20 23:43] LABS: Alcohol, S < 13 mg/dL (<13)
[2021-07-20] MEDS ORDERED: D5W 1/2 NS 1000 ml BAG 1,000 ML IV SCH (23:45)
[2021-07-20 23:59] LABS: TSH Ultra Thyroid Stim Horm 1.74 mcIU/mL (0.34-5.60)
[2021-07-21 00:29] LABS: Blood Urea Nitrogen 17 mg/dL (6-24); Calcium 9.4 mg/dL (8.6-10.3); Chloride 88 mmol/L (101-111); Sodium 132 mmol/L (135-145); eGFR CKD-EPI 54.3 (>60)
[2021-07-21 00:42] LABS: CO2 Carbon Dioxide < 7 mmol/L (22-32); Glucose 673 mg/dL (70-100); Glucose Confirmatory 673 mg/dL (70-100)
[2021-07-21 00:44] LABS: Magnesium 2.2 mg/dL (1.9-2.7); Potassium 5.7 mmol/L (3.5-5.0)
[2021-07-21 00:45] LABS: AST 167 U/L (13-39)
[2021-07-21] MEDS ORDERED: NS 0.45% 1000 ml BAG 1,000 ML IV SCH ×2 (01:00→05:11)
[2021-07-21 01:28] LABS: Cholesterol 237 mg/dL; HDL Cholesterol 91.1 mg/dL; Lipase 143 U/L (11.0-82.0); Triglycerides 532 mg/dL
[2021-07-21 01:41] LABS: Urine Appearance Clear; Urine Bilirubin Negative (Negative); Urine Blood 1+ (Negative); Urine Color Yellow; Urine Glucose 3+(>=500 mg/dL) (Negative); Urine Ketones 2+ (Negative); Urine Nitrite Negative (Negative); Urine Protein 1+(30 mg/dL) (Negative); Urine Specific Gravity 1.014 (1.002-1.030); Urine Urobilinogen Negative (Negative)
[2021-07-21 01:43] LABS: LDL Cholesterol Direct 86 mg/dL
[2021-07-21 03:05] LABS: Urine Bacteria 1+ (Absent); Urine Red Blood Cell Trace(0-2/hpf) (Absent); Urine White Blood Cell Trace(0-5/hpf) (Absent)
[2021-07-21] MEDS ORDERED: Lorazepam PYXIS KEY PRN (03:12)
[2021-07-21 03:30] LABS: Calcium 8.4 mg/dL (8.6-10.3); Magnesium 1.6 mg/dL (1.9-2.7); Phosphorus 4.3 mg/dL (2.5-5.0); Potassium 4.7 mmol/L (3.5-5.0); eGFR CKD-EPI 64.6 (>60)
[2021-07-21] MEDS ORDERED: Magnesium Sulfate IV 3 GM in NS 0.9% 100 ml BAG 100 ML IVPB ONE (03:38)
[2021-07-21] MEDS ORDERED: LORazepam 2 mg VIAL 1 ml IV PUSH PRN (04:00)
[2021-07-21 04:37] LABS: Glucose Confirmatory 415 mg/dL (70-100)
[2021-07-21 05:34] LABS: Glucose Confirmatory 447 mg/dL (70-100)
[2021-07-21] MEDS: Insulin Infusion 100unit/100mL 100 UNIT/100 ML BAG IV SCH ×2 (06:07→11:15)
[2021-07-21 06:33] LABS: Glucose Confirmatory 409 mg/dL (70-100)
[2021-07-21 07:40] LABS: Calcium 8.2 mg/dL (8.6-10.3); Magnesium 2.7 mg/dL (1.9-2.7); Phosphorus 2.5 mg/dL (2.5-5.0); Potassium 4.2 mmol/L (3.5-5.0); eGFR CKD-EPI 67.6 (>60)
[2021-07-21 08:11] LABS: Hematocrit 32 % (35-47); Hemoglobin 10.9 g/dL (12.0-16.0); Mean Corpuscular HGB Conc 34 g/dL (31-36); Mean Corpuscular Hemoglobin 40 pg (27-31); Mean Corpuscular Volume 118 fL (80-97); Mean Platelet Volume 9.1 fL (7.4-10.4); Platelet Count 91 10^3/uL (150-450); Red Blood Count 2.73 10^6 /uL (3.70-4.87); Red Cell Distribution Width 14 % (10-15); White Blood Count 9.3 10^3/uL (3.5-10.8)
[2021-07-21 08:48] LABS: ABS Lymphocytes 1.4 10^3/ul (1.0-4.8); ABS Monocytes 0.5 10^3/ul (0-0.8); ABS Neutrophils 7.4 10^3/ul (1.5-7.7); Eosinophil % 0.1 %; Lymphocyte % 14.7 %; Nucleated Red Blood Cells % 0.1
[2021-07-21] MEDS ORDERED: D5LR 1000 ml BAG 1,000 ML IV SCH ×2 (09:00→09:54)
[2021-07-21 11:28] LABS: Calcium 8.3 mg/dL (8.6-10.3); Magnesium 2.3 mg/dL (1.9-2.7); Phosphorus 1.5 mg/dL (2.5-5.0); eGFR CKD-EPI 83.6 (>60)
[2021-07-21] MEDS ORDERED: Potassium Phosphate IV 10 MMOLE in NS 0.9% 250 ml 250 ML IVPB ONE (12:06)
[2021-07-21] MEDS ORDERED: SODIUM BICARB IV SCH ×2 (13:00→15:00)
[2021-07-21] MEDS ORDERED: D10W IV SCH ×2 (13:00→15:00)
[2021-07-21] MEDS ORDERED: Insulin GLARGINE 100 un/ml 10 ml VIAL SUBCUT ONE (13:04)
[2021-07-21 14:39] LABS: Calcium 8.2 mg/dL (8.6-10.3); Magnesium 2.2 mg/dL (1.9-2.7); Phosphorus 1.8 mg/dL (2.5-5.0); Potassium 4.2 mmol/L (3.5-5.0); eGFR CKD-EPI 96.6 (>60)
[2021-07-21] MEDS ORDERED: Dextrose 50% Syringe 50 ml 25 GM/50 ML SYRINGE IV PUSH PRN (14:55)
[2021-07-21 20:28] LABS: Folate 6.65 ng/mL (5.90-24.80)
[2021-07-21 20:30] LABS: Calcium 8.5 mg/dL (8.6-10.3); Magnesium 2.1 mg/dL (1.9-2.7); Phosphorus 1.8 mg/dL (2.5-5.0); Potassium 3.4 mmol/L (3.5-5.0); eGFR CKD-EPI 111.6 (>60)
[2021-07-22 04:38] LABS: ABS Lymphocytes 0.7 10^3/ul (1.0-4.8); ABS Monocytes 0.4 10^3/ul (0-0.8); ABS Neutrophils 3.8 10^3/ul (1.5-7.7); Hematocrit 31 % (35-47); Lymphocyte % 14.7 %; Mean Corpuscular HGB Conc 35 g/dL (31-36); Mean Corpuscular Hemoglobin 39 pg (27-31); Mean Corpuscular Volume 112 fL (80-97); Mean Platelet Volume 8.4 fL (7.4-10.4); Platelet Count 76 10^3/uL (150-450); Red Cell Distribution Width 15 % (10-15)
[2021-07-22 04:47] LABS: Calcium 8.3 mg/dL (8.6-10.3); Magnesium 2.1 mg/dL (1.9-2.7); Potassium 3.6 mmol/L (3.5-5.0); eGFR CKD-EPI 114.6 (>60)
[2021-07-22] MEDS ORDERED: DEXTROAMPHETAMINE AMPHETAMINE 20 MG PO SCH (09:15)
[2021-07-22] MEDS ORDERED: Potassium Chlor 20 meq TAB.ER PO ONE (09:23)
[2021-07-22] MEDS: DULoxetine DR 20 mg CAP PO SCH (10:27)
[2021-07-22] MEDS: Insulin GLARGINE 100 un/ml 10 ml VIAL SUBCUT SCH (11:24)
[2021-07-22] MEDS: Potassium Acid Phos 500 mg TAB PO SCH ×3 (11:24→20:58)
[2021-07-22] MEDS ORDERED: Benzocaine/Menthol LOZ PO PRN (12:37)
[2021-07-22] MEDS ORDERED: Calcium Carb (TUMS) 500 mg CHEW TAB PO PRN (12:40)
[2021-07-22] MEDS: Amphetamine MIXED SALT 10mgTAB PO SCH ×2 (14:59→16:40)
[2021-07-23] MEDS: Insulin GLARGINE 100 un/ml 10 ml VIAL SUBCUT SCH (08:30)
[2021-07-23] MEDS: DULoxetine DR 20 mg CAP PO SCH (08:31)
[2021-07-23 08:57] VITALS: BP 146/91
[2021-07-23] MEDS ORDERED: Insulin GLARGINE 100 un/ml 10 ml VIAL SUBCUT SCH (09:00)
== END 2021-07-23 13:30 | disposition home or self-care (01) | DRG 420 ==
LOC: ED 20:43 → EDHOLD 20:43 → ICU 07-21 02:00 → MED 07-22 17:54
PROVIDERS: ADMIT Internal Medicine; ATTEND Surgery Surgical Critical Care

== ENCOUNTER 2022-06-13 19:23 | Inpatient (IN) ==
[2022-06-13] MEDS ORDERED: Lactated Ringers 1000 ml BAG 1,000 ML IV ONE (19:36)
[2022-06-13 19:51] LABS: ABS Lymphocytes 0.7 10^3/ul (1.0-4.8); ABS Monocytes 0.5 10^3/ul (0-0.8); ABS Neutrophils 6.4 10^3/ul (1.5-7.7); Eosinophil % 0.1 %; Hematocrit 41 % (35-47); Hemoglobin 13.5 g/dL (12.0-16.0); Lymphocyte % 9.5 %; Mean Corpuscular HGB Conc 33 g/dL (31-36); Mean Corpuscular Hemoglobin 33 pg (27-31); Mean Corpuscular Volume 100 fL (80-97); Mean Platelet Volume 8.5 fL (7.4-10.4); Nucleated Red Blood Cells % 0.1; Platelet Count 195 10^3/uL (150-450); Red Blood Count 4.09 10^6 /uL (3.70-4.87); Red Cell Distribution Width 14 % (10-15); White Blood Count 7.6 10^3/uL (3.5-10.8)
[2022-06-13 20:24] LABS: Albumin 4.1 g/dL (3.2-5.2); Albumin/Globulin Ratio 1.7 (1-3); Calcium 8.7 mg/dL (8.6-10.3); Globulin 2.4 g/dL (2-4); Total Bilirubin 0.3 mg/dL (0.2-1.0); Total Protein 6.5 g/dL (6.4-8.9); eGFR CKD-EPI 74.8 (>60)
[2022-06-13] MEDS ORDERED: NORMOSOL-R pH 7.4 1000 mL BAG 1,000 ML IV ONE (20:25)
[2022-06-13] MEDS ORDERED: Dextrose 50% Syringe 50 ml 25 GM/50 ML SYRINGE IV PUSH PRN (20:25)
[2022-06-13 20:26] LABS: Potassium 5.1 mmol/L (3.5-5.0)
[2022-06-13] MEDS ORDERED: Ondansetron 4 mg VIAL 2 MG/ML 2 ml VIAL IV PRN (20:27)
[2022-06-13 20:50] LABS: Magnesium 1.8 mg/dL (1.9-2.7); Phosphorus 3.4 mg/dL (2.5-5.0)
[2022-06-13] MEDS ORDERED: Insulin Infusion 100unit/100mL 100 UNIT/100 ML BAG IV SCH (21:00)
[2022-06-13] MEDS ORDERED: Metoclopramide 5 MG/ML VIAL (10 mg) IV SLOW PU PRN (21:01)
[2022-06-13] MEDS ORDERED: Albuterol HFA INHALER 8 gm MDI INH PRN (21:02)
[2022-06-13] MEDS: Enoxaparin 40 MG/0.4 ML SYR SUBCUT SCH (21:41)
[2022-06-13] MEDS ORDERED: NORMOSOL-R pH 7.4 1000 mL BAG 1,000 ML IV SCH (22:00)
[2022-06-13 22:24] LABS: Urine Appearance Clear; Urine Bilirubin Negative (Negative); Urine Blood Negative (Negative); Urine Color Straw; Urine Glucose 3+(>=500 mg/dL) (Negative); Urine Ketones 2+ (Negative); Urine Nitrite Negative (Negative); Urine Protein Negative (Negative); Urine Urobilinogen Negative (Negative)
[2022-06-13 22:38] LABS: Glucose Confirmatory 410 mg/dL (70-100)
[2022-06-13] MEDS ORDERED: D5W NS 0.9% 20Meq KCL 1000 ml 1,000 ML IV SCH (23:45)
[2022-06-13] MEDS ORDERED: Magnesium Sulfate 2 gm BAG 2 GM/50 ML BAG IVPB ONE (23:54)
[2022-06-14 01:16] LABS: Calcium 8.1 mg/dL (8.6-10.3); Magnesium 2.1 mg/dL (1.9-2.7); Phosphorus 1.5 mg/dL (2.5-5.0)
[2022-06-14] MEDS ORDERED: Potassium Phosphate IV 21 MMOLE in NS 0.9% 250 ml 250 ML IVPB ONE (02:00)
[2022-06-14] MEDS: D5W NS 0.9% 20Meq KCL 1000 ml 1,000 ML IV SCH ×2 (02:34→06:11)
[2022-06-14 04:29] LABS: ABS Eosinophils 0.1 10^3/ul (0-0.6); ABS Lymphocytes 1.7 10^3/ul (1.0-4.8); ABS Monocytes 0.6 10^3/ul (0-0.8); ABS Neutrophils 2.6 10^3/ul (1.5-7.7); Eosinophil % 1.7 %; Hematocrit 32 % (35-47); Hemoglobin 10.7 g/dL (12.0-16.0); Lymphocyte % 34.1 %; Mean Corpuscular HGB Conc 34 g/dL (31-36); Mean Corpuscular Hemoglobin 33 pg (27-31); Mean Corpuscular Volume 97 fL (80-97); Mean Platelet Volume 8.1 fL (7.4-10.4); Platelet Count 158 10^3/uL (150-450); Red Blood Count 3.26 10^6 /uL (3.70-4.87); Red Cell Distribution Width 13 % (10-15); White Blood Count 5.1 10^3/uL (3.5-10.8)
[2022-06-14 05:24] LABS: Calcium 7.8 mg/dL (8.6-10.3); Magnesium 2.2 mg/dL (1.9-2.7); Phosphorus 2.1 mg/dL (2.5-5.0); Potassium 4.2 mmol/L (3.5-5.0); eGFR CKD-EPI 111.3 (>60)
[2022-06-14] MEDS ORDERED: Insulin GLARGINE 100 un/ml 10 ml VIAL SUBCUT ONE (06:27)
[2022-06-14] MEDS ORDERED: Sodium Phosphate IV 15 MMOLE in NS 0.9% 250 ml 250 ML IV ONE (07:15)
[2022-06-14] MEDS: DULoxetine DR 60 mg CAP PO SCH (08:50)
[2022-06-14 09:20] LABS: Calcium 7.7 mg/dL (8.6-10.3); Phosphorus 2.9 mg/dL (2.5-5.0); Potassium 4.6 mmol/L (3.5-5.0); eGFR CKD-EPI 112.5 (>60)
[2022-06-14] MEDS ORDERED: Dextrose 50% Syringe 50 ml 25 GM/50 ML SYRINGE IV PUSH PRN (09:23)
[2022-06-14] MEDS: Ciproflox/Dexameth OTIC.SUSP 7.5 ML BTL BOTH EARS SCH ×2 (11:19→20:03)
[2022-06-14] MEDS: Nicotine PATCH 21 MG/24 HR PATCH TRANSDERM SCH (16:35)
[2022-06-14 17:54] LABS: Magnesium 1.9 mg/dL (1.9-2.7); Phosphorus 3.2 mg/dL (2.5-5.0); Potassium 4.4 mmol/L (3.5-5.0); eGFR CKD-EPI 109.7 (>60)
[2022-06-14] MEDS: Enoxaparin 40 MG/0.4 ML SYR SUBCUT SCH (20:03)
[2022-06-14 21:15] LABS: Magnesium 1.7 mg/dL (1.9-2.7); Phosphorus 2.1 mg/dL (2.5-5.0); eGFR CKD-EPI 84.2 (>60)
[2022-06-14] MEDS ORDERED: Magnesium Sulfate IV 3 GM in NS 0.9% 100 ml BAG 100 ML IVPB ONE (21:33)
[2022-06-15 04:47] LABS: ABS Eosinophils 0.1 10^3/ul (0-0.6); ABS Lymphocytes 1.3 10^3/ul (1.0-4.8); ABS Monocytes 0.4 10^3/ul (0-0.8); ABS Neutrophils 1.6 10^3/ul (1.5-7.7); Eosinophil % 2.8 %; Hematocrit 33 % (35-47); Hemoglobin 11.3 g/dL (12.0-16.0); Lymphocyte % 38.6 %; Mean Corpuscular HGB Conc 34 g/dL (31-36); Mean Corpuscular Hemoglobin 33 pg (27-31); Mean Corpuscular Volume 95 fL (80-97); Mean Platelet Volume 8.1 fL (7.4-10.4); Platelet Count 149 10^3/uL (150-450); Red Blood Count 3.47 10^6 /uL (3.70-4.87); Red Cell Distribution Width 14 % (10-15); White Blood Count 3.5 10^3/uL (3.5-10.8)
[2022-06-15 05:45] LABS: Phosphorus 2.4 mg/dL (2.5-5.0); Potassium 4.2 mmol/L (3.5-5.0); eGFR CKD-EPI 113.9 (>60)
[2022-06-15 08:07] VITALS: BP 137/78
[2022-06-15] MEDS: Nicotine PATCH 21 MG/24 HR PATCH TRANSDERM SCH (08:55)
[2022-06-15] MEDS: DULoxetine DR 60 mg CAP PO SCH (08:56)
[2022-06-15] MEDS: Ciproflox/Dexameth OTIC.SUSP 7.5 ML BTL BOTH EARS SCH (08:59)
== END 2022-06-15 11:55 | disposition home or self-care (01) | DRG 420 ==
LOC: ED 19:23 → EDHOLD 20:27 → ICU 21:03
PROVIDERS: ADMIT Student in an Organized Health Care Education/Training Program; ATTEND Student in an Organized Health Care Education/Training Program